=== PATIENT | female | born 2000 | race Caucasian/White ===

== ENCOUNTER 2021-10-13 21:34 | Emergency (ER) | payer MEDICAID, SELFPAY ==
[2021-10-13 21:54] LABS: Basophils Percent Auto 0.4 % (0.2-1.2); Eosinophils Absolute Auto 0.1 K/mm3 (0-0.3); Eosinophils Percent Auto 1.3 % (0-4.4); Hemoglobin 12.7 g/dL (12.0-15.0); Immature Granulocyte Absolute 0.01 K/mm3 (0.00-0.031); Immature Granulocyte Percent A 0.1 % (0-0.5); Lymphocytes Absolute Auto 2.13 K/mm3 (0.9-3.2); Mean Corpuscular HGB Conc 32.6 g/dl (32-36); Mean Corpuscular Hemoglobin 30.7 pg (26-34); Mean Corpuscular Volume 94.2 fl (80-100); Mean Platelet Volume 10.3 fl (7.4-10.4); Monocytes Absolute Auto 0.4 K/mm3 (0.1-0.6); Monocytes Percent Auto 5.3 % (2.6-8.5); Neutrophils Absolute Auto 5.2 K/mm3 (1.3-6.7); Neutrophils Percent Auto 65.9 % (45.5-73.1); Platelet Count Result 233 k/mm3 (150-375); Red Blood Count 4.14 M/mm3 (4.2-5.4); Red Cell Distribution Width 12.9 % (11.5-14.5); White Blood Count 7.9 K/mm3 (4.5-10.0)
[2021-10-13 21:56] LABS: Appearance Urine Clear (Clear); Bilirubin Urine Negative (Negative); Blood Urine 1+ (Negative); Color Urine Yellow (Yellow); Glucose Urine UA Negative (Negative); Ketones Urine Negative (Negative); Leukocyte Esterase Ur 1+ LEU/UL (Negative); Nitrate Urine Negative (Negative); Protein Urine 1+ mg/dL (Negative); Urobilinogen Urine 0.2 mg/dL (<2.0)
[2021-10-13 22:00] LABS: Amorphous Sediment Urine Few; Bacteria Urine Trace /hpf; Mucus Urine Rare /lpf; Squamous Epithelial Cell Urine Rare /hpf (Few); WBC Urine 31-50 /hpf
[2021-10-13 22:02] LABS: Add Urine Microscopic? YES
[2021-10-13 22:03] LABS: Alanine Aminotransferase 13 U/L (6-35); Albumin Level 4.5 g/dL (3.5-5.1); Alkaline Phosphatase 66 U/L (38-126); Anion Gap 10 mmol/L (8-16); Aspartate Amino Transferase 25 U/L (14-36); Bilirubin,Total 0.4 mg/dL (0.2-1.3); Blood Urea Nitrogen 16 mg/dL (7-17); Carbon Dioxide 24 mmol/L (22-30); Chloride 101 mmol/L (98-107); Estimated CRCL calculation 111 ml/min; Estimated Glomerular Filt Rate > 60; Glucose 93 mg/dL (65-110); Potassium 3.7 mmol/L (3.4-5.0); Sodium 135 mmol/L (137-145)
--- NOTE | 2021-10-13 22:16 | ED.FEMALEGU ---
HPI - Female Genitourinary General Chief complaint: Urogenital-Female Stated complaint: UTI/Kidney Pain, 7 Weeks Time Seen by Provider: 10/13/21 22:10 History of Present Illness HPI Narrative: 21-year-old female presents emergency room with symptoms consistent with urinary tract infection. Is been going for couple days. She got urinary frequency and urgency. She has some mild suprapubic pain associated with this. Also complains some nonspecific pain to her back. Denies any chills or fevers. She states she used to have frequent urinary tract infections when she was a kid but not had one in many years. Denies any blood in her urine. She is currently approximately 7 weeks gestation at this time to get an appointment with the CREW CLERK for the first time coming up in approximately 12 days. Related Data Allergies Allergy/AdvReac Type Severity Reaction Status Date / Time coconut Allergy Unknown HIVES Verified 10/13/21 21:37 Wasp Allergy Unknown SWELLING Uncoded 10/13/21 21:37 AND NUMBNESS AT SITE Review of Systems Review of Systems: CONSTITUTIONAL: Denies fever, chills, or sweats. EYES: Denies visual changes, redness, or discharge. ENT: Denies rhinorrhea, congestion, sore throat, or otalgia. CARDIOVASCULAR: Denies chest pain, palpitations, or edema. RESPIRATORY: Denies cough or dyspnea. GASTROINTESTINAL: Denies abdominal pain, nausea, vomiting, or diarrhea. GENITOURINARY: Urinary frequency, urgency, and dysuria. SKIN: Denies rash or itching. MUSCULOSKELETAL: Denies back pain, joint pain, or myalgia. NEUROLOGIC: Denies headache, numbness, or weakness. PSYCHIATRIC: Denies anxiety or depression. [facility] Past Medical History Medical History Asthma Social History Social History Smoking status: Never smoker Living arrangements: with family Exam Narrative: APPEARANCE: Well appearing, no pain or distress, well-nourished. Head Normocephalic and atraumatic. EYES: PERRLA/EOMI, conjunctivae clear. NOSE: Normal with no drainage EARS:TMS clear with [place], with good light reflex. THROAT: Pharynx clear, no exudate. NECK: Supple. No adenopathy, no masses. RESPIRATORY: Airway patent, respirations nonlabored. Clear to auscultation bilaterally, no rales, rhonchi, wheezing. CARDIOVASCULAR: Regular rate and rhythm without murmurs, rubs, or gallops. ABDOMINAL: Soft, nondistended, no hepatosplenomegaly. Mild suprapubic tenderness is noted. No CVA tenderness. Musculoskeletal: Moves all extremities. Strength/ROM intact, No edema, No calf tenderness. NEURO: Alert. Cranial nerves II through XII intact. Normal gait. Good coordination. Nonfocal examination. SKIN:: Warm, dry. Normal Color PSYCHIATRIC: Normal affect/mood, normal interaction MDM - Female Genitourinary MDM Narrative Medical decision making narrative: Urinalysis consistent with urinary tract infection. CBC shows a normal white count of 7.9. Patient will be treated with a course of antibiotics for 7 days. Advised her she can take Tylenol safely during her and to increase fluids. She also has a follow-up appoint with her CREW CLERK coming up at approximately 12 days. Lab Data Result diagrams: 10/13/21 21:46 10/13/21 21:46 Labs: Lab Results 10/13/21 10/13/21 10/13/21 Range/Units 21:46 21:46 21:49 WBC 7.9 (4.5-10.0) K/mm3 RBC 4.14 L (4.2-5.4) M/mm3 Hgb 12.7 (12.0-15.0) g/dL Hct 39.0 (37.0-47.0) % MCV 94.2 (80-100) fl MCH 30.7 (26-34) pg MCHC 32.6 (32-36) g/dl RDW 12.9 (11.5-14.5) % Plt Count 233 (150-375) k/mm3 MPV 10.3 (7.4-10.4) fl Immature Gran % (Auto) 0.1 (0-0.5) % Neut % (Auto) 65.9 (45.5-73.1) % Lymph % (Auto) 27.0 (18.3-44.2) % [place] % (Auto) 5.3 (2.6-8.5) % Eos % (Auto) 1.3 (0-4.4) % Baso % (Auto) 0.4 (0.2-1.2) % Lymph # (
== END 2021-10-13 22:29 | disposition home or self-care (01) ==
LOC: ANHED 22:20
PROVIDERS: Emergency Provider Emergency Medicine
DX: O23.91 Unspecified genitourinary tract infection in pregnancy, first trimester (principal); O99.511 Diseases of the respiratory system complicating pregnancy, first trimester; J45.909 Unspecified asthma, uncomplicated; Z3A.01 Less than 8 weeks gestation of pregnancy
CPT/HCPCS: 36415; 80053; 81001; 85025; 87077; 87086; 87088; 99283

== ENCOUNTER 2021-12-17 02:05 | Emergency (ER) | payer MEDICAID, SELFPAY ==
[2021-12-17 02:09] VITALS: BP 148/88; PULSE 83; RESP 18; TEMP 36.3; O2SAT 100
--- NOTE | 2021-12-17 03:35 | ED.DENTAL ---
HPI - Dental/Oral General Chief complaint: Dental/Oral Stated complaint: Left lower dental pain Time Seen by Provider: 12/17/21 03:04 History of Present Illness HPI Narrative: Patient is a 21-year-old female presenting with dental pain. Patient states that one of her left lower molars had a filling that fell out and then the tooth subsequently cracked. Since that time, the pain is worsened and she now has slight swelling of her left cheek. States that the whole area feels very sensitive. Patient has an appointment with a dentist in 2 weeks but the pain has become unbearable. States that she has called numerous dentists offices to try to get in soon as possible but they do not take her insurance. Patient states that she has been alternating Tylenol and ibuprofen for pain control. She denies difficulty swallowing or breathing. No fevers, chest pain, nausea or vomiting, abdominal pain. Related Data Allergies Allergy/AdvReac Type Severity Reaction Status Date / Time coconut Allergy Unknown HIVES Verified 12/17/21 02:06 Wasp Allergy Unknown SWELLING Uncoded 12/17/21 02:06 AND NUMBNESS AT SITE Review of Systems Review of Systems: All systems reviewed & are unremarkable except as noted in HPI and below PMFSH Past Medical History Medical History Asthma Social History Social History Smoking status: Never smoker Exam Narrative: GENERAL: Well-appearing, well-nourished, and in no acute distress. HEAD: Normocephalic, atraumatic. Mild swelling left lower cheek, multiple dental caries, tooth 21 cracked and tender with palpation EYES: PERRLA and EOMI. ENT: Nares clear, no rhinorrhea or epistaxis. Mucous membranes moist. NECK: Supple. CHEST: Clear to auscultation. No respiratory distress. HEART: Regular rate and rhythm. No murmur heard. Normal peripheral pulses. ABDOMEN: Soft, nontender, nondistended, normal active bowel sounds. EXTREMITIES: Normal range of motion. No edema. SKIN: Warm, dry, no rash. NEURO: No focal deficits. Alert and oriented x3. PSYCH: Normal mood and affect. Course Course Emergency Course: Patient is a 21-year-old female presenting with dental pain. Vitals within normal limits. Exam remarkable for the above. Concern for possible developing dental infection. Will start penicillin. Advised patient to keep her dental appointment as scheduled. Appropriate return precautions given. Patient voiced understanding and is agreeable with plan. Discharged in stable condition. Vital Signs Vital signs: Vital Signs Temperature 97.4 F L 12/17/21 02:09 Pulse Rate 83 12/17/21 02:09 Respiratory Rate 18 12/17/21 02:09 Blood Pressure 148/88 H 12/17/21 02:09 Pulse Oximetry 100 12/17/21 02:09 Oxygen Delivery Room Air 12/17/21 02:09 Temperature 97.4 F L 12/17/21 02:09 Pulse Rate 83 12/17/21 02:09 Respiratory Rate 18 12/17/21 02:09 Blood Pressure 148/88 H 12/17/21 02:09 Pulse Oximetry 100 12/17/21 02:09 Oxygen Delivery Room Air 12/17/21 02:09 MDM - Dental/Oral Lab Data Labs: UCG Bedside Result Negative Reference Range: Negative Discharge Plan Discharge Clinical Impression: Dental caries, Toothache Patient Disposition: Home, Self-Care Condition: Stable Instructions: Antibiotic Form, Toothache (ED) Additional Instructions: Please follow-up with your primary care provider and dentist as scheduled. Prescriptions: New penicillin V potassium 500 mg tablet 500 mg PO QID 7 Days Qty: 28 0RF hydrocodone-acetaminophen 5-325 mg tablet 1 tablet PO DAILY PRN (Reason: pain) Qty: 3 0RF No Action nitrofurantoin monohyd/m-cryst [Macrobid] 100 mg capsule 100 mg PO Q12H 7 Days Qty: 14 0RF Rx Instructions: must administer with a meal/food Foll
[2021-12-17] MEDS: KETOROLAC 30 MG/ML VIAL (*BKC) IM (04:07)
[2021-12-17] MEDS: PENICILLIN V POTASSIUM 250 MG TABLET 500 MG PO (04:08)
== END 2021-12-17 04:10 | disposition home or self-care (01) ==
PROVIDERS: Emergency Provider Emergency Medicine; PCP Family Medicine
DX: K02.9 Dental caries, unspecified (principal); K08.89 Other specified disorders of teeth and supporting structures
CPT/HCPCS: 81025; 96372; 99283; A9270; J1885

== ENCOUNTER 2022-04-22 11:38 | Outpatient (CLI) | payer OTHER, SELFPAY | END 2022-04-22 11:39 | disposition home or self-care (01) | PROVIDERS: PCP Family Medicine; Visit Provider Obstetrics & Gynecology | DX: Z87.59 Personal history of other complications of pregnancy, childbirth and the puerperium (principal) | CPT/HCPCS: 36415; 84702 ==

== ENCOUNTER 2022-05-11 13:41 | Emergency (ER) | payer OTHER, SELFPAY ==
[2022-05-11 14:07] VITALS: BP 121/64; PULSE 100; RESP 15; TEMP 36.8; O2SAT 98
--- NOTE | 2022-05-11 16:17 | ED.NAVMDI ---
HPI - Nausea/Vomiting/Diarrhea General Chief complaint: Nausea/Vomiting/Diarrhea Stated complaint: N/V at 9 weeks Time Seen by Provider: 05/11/22 15:54 Source: patient and RN notes reviewed Mode of arrival: ambulatory Limitations: no limitations History of Present Illness HPI Narrative: Patient is 22 years old white female 9 weeks presents to the ED with nausea and vomiting unable to keep anything down since last night. Patient is 2 para 0 1. She denies any abdominal pain, vaginal bleeding or discharge. Patient denies any fever, or respiratory symptoms. Feels achy and chilly. Related Data Allergies Allergy/AdvReac Type Severity Reaction Status Date / Time coconut Allergy Unknown HIVES Verified 05/11/22 13:42 Wasp Allergy Unknown SWELLING Uncoded 05/11/22 13:42 AND NUMBNESS AT SITE Review of Systems Review of Systems: All systems reviewed & are unremarkable except as noted in HPI and below PMFSH Past Medical History Medical History Asthma Social History Social History Smoking status: Never smoker Living arrangements: with family Exam Narrative: General appearance: Well-developed, well-nourished Skin: Normal color Head: Normocephalic, nontraumatic Eyes: Clear conjunctiva ENT: Oropharynx normal, ears normal, nose normal Neck: Supple, nontender Chest and respiratory: Airway patent, no respiratory distress, no accessory muscle use Heart: Regular rate/rhythm Abdomen: Soft, nontender, no organomegaly, quiet bowel sounds Vascular: Normal peripheral pulses, normal capillary refill. Musculoskeletal: Normal range of motion, nontender back Neurologic: Alert and oriented ?3, QUALITY IMPROVEMENT ANALYST is normal as tested, no gross motor deficit Course Reevaluation(s) Reevaluation #1: Patient feeling much better after 2 L of normal saline and 8 mg of Zofran. And she is ready to go Date: 05/11/22 Time: 19:07 Consultations Date: 05/11/22 Time: 19:02 Vital Signs Vital signs: Vital Signs Temperature 36.8 C 05/11/22 14:07 Pulse Rate 100 05/11/22 14:07 Respiratory Rate 15 05/11/22 14:07 Blood Pressure 121/64 05/11/22 14:07 Pulse Oximetry 98 05/11/22 14:07 Oxygen Delivery Room Air 05/11/22 14:07 Temperature 36.8 C 05/11/22 14:07 Pulse Rate 100 05/11/22 14:07 Respiratory Rate 15 05/11/22 14:07 Blood Pressure 121/64 05/11/22 14:07 Pulse Oximetry 98 05/11/22 14:07 Oxygen Delivery Room Air 05/11/22 14:07 MDM - Nausea/Vomiting/Diarrhea MDM Narrative Medical decision making narrative: Patient is 22 weeks old white female came with nausea and vomiting, 9 weeks , feeling chilly, patient denies abdominal pain, vaginal bleeding or discharge physical examination was unremarkable, differential diagnosis hyperemesis gravidarum versus gastroenteritis versus urinary tract infection Labs, UA ordered. Work-up did not show any significant finding to explain patient vomiting. Hyperemesis gravidarum is my concern. Patient received 2 L of normal saline, 8 mg of Zofran IV prior to discharge, feeling much better and ready to go home. Differential Diagnosis Differential diagnosis: Likely gastroenteritis, dehydration and other (Hyperemesis gravidarum, urinary tract infection, electrolyte imbalance) Lab Data 05/11/22 16:35 05/11/22 16:35 Labs: Lab Results 05/11/22 05/11/22 Range/Units 16:35 16:35 WBC 5.6 (4.5-10.0) K/mm3 RBC 4.72 (4.2-5.4) M/mm3 Hgb 14.4 (12.0-15.0) g/dL Hct 42.6 (37.0-47.0) % MCV 90.3 (80-100) fl MCH
[2022-05-11] MEDS: SODIUM CHLORIDE 0.9% IV 1,000 ML 999 ML IV CONT ×2 (16:35→16:36)
[2022-05-11] MEDS: ONDANSETRON INJ 4 MG/2 ML VIAL 8 MG IV PUSH (16:36)
[2022-05-11 16:52] LABS: Basophils Percent Auto 0.2 % (0.2-1.2); Eosinophils Absolute Auto 0.1 K/mm3 (0-0.3); Eosinophils Percent Auto 0.9 % (0-4.4); Hematocrit 42.6 % (37.0-47.0); Hemoglobin 14.4 g/dL (12.0-15.0); Immature Granulocyte Absolute 0.02 K/mm3 (0.00-0.031); Immature Granulocyte Percent A 0.4 % (0-0.5); Lymphocytes Absolute Auto 0.93 K/mm3 (0.9-3.2); Lymphocytes Percent Auto 16.7 % (18.3-44.2); Mean Corpuscular HGB Conc 33.8 g/dl (32-36); Mean Corpuscular Hemoglobin 30.5 pg (26-34); Mean Corpuscular Volume 90.3 fl (80-100); Mean Platelet Volume 10.5 fl (7.4-10.4); Monocytes Absolute Auto 0.4 K/mm3 (0.1-0.6); Monocytes Percent Auto 6.8 % (2.6-8.5); Neutrophils Absolute Auto 4.2 K/mm3 (1.3-6.7); Platelet Count Result 229 k/mm3 (150-375); Red Blood Count 4.72 M/mm3 (4.2-5.4); Red Cell Distribution Width 12.5 % (11.5-14.5); White Blood Count 5.6 K/mm3 (4.5-10.0)
[2022-05-11 16:59] LABS: Alanine Aminotransferase 20 U/L (6-35); Albumin Level 4.5 g/dL (3.5-5.1); Alkaline Phosphatase 68 U/L (38-126); Anion Gap 10 mmol/L (8-16); Aspartate Amino Transferase 23 U/L (14-36); Bilirubin,Total 0.5 mg/dL (0.2-1.3); Blood Urea Nitrogen 13 mg/dL (7-17); Calcium 8.9 mg/dL (8.4-10.2); Carbon Dioxide 22 mmol/L (22-30); Chloride 104 mmol/L (98-107); Estimated CRCL calculation 157 ml/min; Estimated Glomerular Filt Rate > 60; Glucose 89 mg/dL (65-110); Lipase 52 U/L (23-300); Potassium 3.5 mmol/L (3.4-5.0); Sodium 136 mmol/L (137-145)
[2022-05-11 18:57] LABS: Appearance Urine Clear (Clear); Bacteria Urine None Seen /hpf; Bilirubin Urine Negative (Negative); Blood Urine Negative (Negative); Color Urine Yellow (Yellow); Glucose Urine UA Negative (Negative); Ketones Urine 2+ mg/dL (Negative); Leukocyte Esterase Ur Negative LEU/UL (Negative); Nitrate Urine Negative (Negative); Non Pathogenic Casts 0-2; Protein Urine Trace mg/dL (Negative); RBC Urine 0-2 /hpf (0-2); Specific Grav Ur 1.022 (1.001-1.035); Squamous Epithelial Cell Urine Occasional /hpf (Few); WBC Urine 0-5 /hpf
[2022-05-11 19:03] LABS: Add Urine Microscopic? YES
[2022-05-11 19:35] VITALS: PULSE 77; RESP 20; O2SAT 98
== END 2022-05-11 19:40 | disposition home or self-care (01) ==
PROVIDERS: Emergency Provider Emergency Medicine; PCP Obstetrics & Gynecology
DX: O21.0 Mild hyperemesis gravidarum (principal); O99.511 Diseases of the respiratory system complicating pregnancy, first trimester; J45.909 Unspecified asthma, uncomplicated; Z3A.09 9 weeks gestation of pregnancy
CPT/HCPCS: 36415; 80053; 81001; 83690; 85025; 96360; 96361; 96374; 99284; J2405; J7030

== ENCOUNTER 2022-08-02 00:14 | Observation (INO) | payer OTHER, SELFPAY ==
--- NOTE | 2022-08-02 00:30 | PC.NURSE ---
[place] at 1999. Noted vaginal bleeding with wiping at approx 2200. Spotting after vagianl bleeding. Not using pad. NO pain.
--- NOTE | 2022-08-02 00:30 | OBADM ---
This patient, Ana Barone, admitted to the OB room OB Post 115 for observation. Patient/family oriented to hospital policies and general routines including ID bracelet, bed and alarms, visiting hours, pain management, procedures, bathroom and other care routines, personal items, smoking policy, room service/diet, and visiting hours. Patient/Family are encouraged to report perceived risks to care and to ask questions if they do not understand what they are told or what they should do.
[2022-08-02 00:32] VITALS: BP 127/72; PULSE 92
--- NOTE | 2022-08-02 01:00 | PC.NURSE ---
Dr. Viera on unit advised of pt assessment. Pt to be discharged to home and follow up in office today for anatomy scan and appt.
--- NOTE | 2022-08-04 08:22 | PM.OBTRLD ---
OB - Triage/Final Diagnosis Visit Information Comments/Additional reasons for admission: I have assessed the risk for this patient, Ana Barone, and determined that she would benefit from observation care. Final Diagnosis (1) Vaginal bleeding during : Code(s): O46.90 - Antepartum hemorrhage, unspecified, unspecified trimester Status: Acute
== END 2022-08-02 01:45 | disposition home or self-care (01) ==
PROVIDERS: Admitting Provider Obstetrics & Gynecology; Visit Provider Obstetrics & Gynecology
DX: O46.92 Antepartum hemorrhage, unspecified, second trimester (principal); Z3A.21 21 weeks gestation of pregnancy
CPT/HCPCS: G0378; G0379

== ENCOUNTER 2022-08-25 06:33 | Observation (INO) | payer OTHER, SELFPAY ==
[2022-08-25 06:55] VITALS: TEMP 36.2
[2022-08-25 06:56] VITALS: BP 139/78; PULSE 103
[2022-08-25 07:31] VITALS: BP 113/46; PULSE 102
[2022-08-25 07:39] LABS: Appearance Urine Clear (Clear); Bacteria Urine None Seen /hpf; Bilirubin Urine Negative (Negative); Blood Urine Negative (Negative); Color Urine Yellow (Yellow); Glucose Urine UA Negative (Negative); Ketones Urine Negative (Negative); Leukocyte Esterase Ur 1+ LEU/UL (NEGATIVE); Need Manual Microscopic Reviewed; Nitrate Urine Negative (Negative); Non Pathogenic Casts 0-2; Protein Urine Negative (Negative); RBC Urine 0-2 /hpf (0-2); Specific Grav Ur 1.007 (1.001-1.035); Squamous Epithelial Cell Urine Occasional /hpf (Few); Urobilinogen Urine 0.2 mg/dL (<2.0); WBC Urine 0-5 /hpf (0-3); pH Urine 7.5 (5.0-9.0)
[2022-08-25 07:40] LABS: Add Urine Microscopic? YES
--- NOTE | 2022-08-25 07:40 | PC.NURSE ---
Sherrill Gaspar CNM at department reviewed strip and UA result. order received for flexeril, may discharge to home when she feels better
[2022-08-25] MEDS: CYCLOBENZAPRINE HCL 10 MG TABLET PO (08:07)
--- NOTE | 2022-08-28 17:04 | P.PNOB_ITS ---
OB - Triage/Final Diagnosis Visit Information Date of evaluation: 08/25/22 Reason for evaluation: other (back pain) Comments/Additional reasons for admission: I have assessed the risk for this patient, Ana Barone, and determined that she would benefit from observation care. Evaluation Laboratory results: Laboratory Tests 08/25/22 06:49 Urine Color Yellow Urine Appearance Clear Urine pH 7.5 Ur Specific [place] 1.007 Urine Protein Negative Urine Glucose (UA) Negative Urine Ketones Negative Ur Blood (Man) Negative Urine Nitrate Negative Urine Bilirubin Negative Urine Urobilinogen 0.2 Ur Leukocyte Esterase 1+ H Add Ur Microanalysis Reviewed Urine RBC 0-2 Urine WBC 0-5 Ur Squamous Epith Cells Occasional Urine Bacteria None seen Urine Casts 0-2
== END 2022-08-25 08:20 | disposition hospice, home (50) ==
PROVIDERS: Admitting Provider Obstetrics & Gynecology; Visit Provider Obstetrics & Gynecology
DX: O99.891 Other specified diseases and conditions complicating pregnancy (principal); M54.9 Dorsalgia, unspecified; Z3A.24 24 weeks gestation of pregnancy
CPT/HCPCS: 81001; 87086; 87088; A9270; G0378; G0379

== ENCOUNTER 2022-10-05 11:07 | Observation (INO) | payer OTHER, SELFPAY ==
[2022-10-05] VITALS (17 sets, daily range): BP systolic 121–151; BP diastolic 67–89; PULSE 88–123; RESP 18–20; TEMP 36.1–36.8; O2SAT 99–100; BMI 36.6
--- NOTE | 2022-10-05 11:28 | PC.NURSE ---
Call made to ESE Franco RN to come and monitor pt in ED.
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
[2022-10-05] MEDS: ACETAMINOPHEN 500 MG TABLET 1000 MG PO (12:51)
[2022-10-05 13:18] LABS: Basophils Absolute Auto 0.1 K/mm3 (0.0-0.1); Basophils Percent Auto 0.5 % (0.2-1.2); Eosinophils Absolute Auto 0.1 K/mm3 (0-0.3); Eosinophils Percent Auto 0.8 % (0-4.4); Hematocrit 35.5 % (37.0-47.0); Hemoglobin 11.9 g/dL (12.0-15.0); Immature Granulocyte Percent A 0.9 % (0-0.5); Lymphocytes Absolute Auto 1.41 K/mm3 (0.9-3.2); Lymphocytes Percent Auto 12.9 % (18.3-44.2); Mean Corpuscular HGB Conc 33.5 g/dl (32-36); Mean Corpuscular Volume 92.4 fl (80-100); Mean Platelet Volume 10.4 fl (7.4-10.4); Monocytes Absolute Auto 0.5 K/mm3 (0.1-0.6); Monocytes Percent Auto 4.6 % (2.6-8.5); Neutrophils Absolute Auto 8.8 K/mm3 (1.3-6.7); Neutrophils Percent Auto 80.3 % (45.5-73.1); Platelet Count Result 263 k/mm3 (150-375); Red Blood Count 3.84 M/mm3 (4.2-5.4)
[2022-10-05 13:24] LABS: Appearance Urine Clear (Clear); Bacteria Urine 2+ /hpf; Bilirubin Urine Negative (Negative); Blood Urine Negative (Negative); Color Urine Yellow (Yellow); Glucose Urine UA Negative (Negative); Ketones Urine Negative (Negative); Leukocyte Esterase Ur 1+ LEU/UL (Negative); Nitrate Urine Negative (Negative); Non Pathogenic Casts 0-2; Protein Urine Negative (Negative); RBC Urine 0-2 /hpf (0-2); Specific Grav Ur 1.011 (1.001-1.035); Squamous Epithelial Cell Urine Occasional /hpf (Few); Urobilinogen Urine 0.2 mg/dL (<2.0)
[2022-10-05 13:29] LABS: Alanine Aminotransferase 49 U/L (6-35); Albumin Level 3.8 g/dL (3.5-5.1); Alkaline Phosphatase 114 U/L (38-126); Anion Gap 5 mmol/L (8-16); Aspartate Amino Transferase 24 U/L (14-36); Bilirubin,Total 0.3 mg/dL (0.2-1.3); Blood Urea Nitrogen 6 mg/dL (7-17); Calcium 8.9 mg/dL (8.4-10.2); Carbon Dioxide 20 mmol/L (22-30); Chloride 107 mmol/L (98-107); Estimated CRCL calculation 203 ml/min; Estimated Glomerular Filt Rate > 60; Glucose 84 mg/dL (65-110); Sodium 132 mmol/L (137-145); Uric Acid 3.2 mg/dL (2.5-7.5)
[2022-10-05 13:30] LABS: INR 0.9; Partial Thromboplastin Time 25.5 SECONDS (22.3-36.8); Prothrombin Time 12.1 Seconds (11.1-14.7)
[2022-10-05 13:51] LABS: Creatinine Urine 54.8 mg/dL
[2022-10-05 13:52] LABS: Total Protein Urine Random < 5 mg/dL; Ur Ttl Prot Creatinine Ratio < 0.09 mg/mg (0-0.20)
[2022-10-05] MEDS: CYCLOBENZAPRINE HCL 10 MG TABLET PO (13:55)
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
[2022-10-05 14:17] LABS: Add Urine Microscopic? YES
--- NOTE | 2022-10-05 16:27 | OBADM ---
This patient, Ana Barone, admitted to the OB room OB Post 116 for observation. Patient/family oriented to hospital policies and general routines including ID bracelet, bed and alarms, visiting hours, pain management, procedures, bathroom and other care routines, personal items, smoking policy, room service/diet, and visiting hours. Patient/Family are encouraged to report perceived risks to care and to ask questions if they do not understand what they are told or what they should do.
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
== END 2022-10-05 17:52 | disposition home or self-care (01) ==
LOC: ANHED 12:59 → ANHOBPP 13:30
PROVIDERS: Advanced Practice Midwife; Admitting Provider Obstetrics & Gynecology; Emergency Provider General Practice; Visit Provider Obstetrics & Gynecology
DX: Z04.1 Encounter for examination and observation following transport accident (principal)
CPT/HCPCS: 36415; 59025; 80053; 81001; 82570; 84156; 84550; 85025; 85610; 85730; 87086; 99285; A9270; G0378; G0379

== ENCOUNTER 2022-10-19 08:35 | Outpatient (CLI) | payer OTHER, SELFPAY ==
[2022-10-19 09:31] VITALS: BP 119/74; PULSE 95
[2022-10-19 09:44] LABS: Basophils Percent Auto 0.3 % (0.2-1.2); Eosinophils Absolute Auto 0.1 K/mm3 (0-0.3); Eosinophils Percent Auto 1.2 % (0-4.4); Hematocrit 32.2 % (37.0-47.0); Hemoglobin 10.9 g/dL (12.0-15.0); Immature Granulocyte Absolute 0.03 K/mm3 (0.00-0.031); Immature Granulocyte Percent A 0.5 % (0-0.5); Lymphocytes Absolute Auto 1.41 K/mm3 (0.9-3.2); Lymphocytes Percent Auto 21.9 % (18.3-44.2); Mean Corpuscular HGB Conc 33.9 g/dl (32-36); Mean Corpuscular Hemoglobin 30.7 pg (26-34); Mean Corpuscular Volume 90.7 fl (80-100); Mean Platelet Volume 10.1 fl (7.4-10.4); Monocytes Absolute Auto 0.3 K/mm3 (0.1-0.6); Monocytes Percent Auto 4.3 % (2.6-8.5); Neutrophils Absolute Auto 4.6 K/mm3 (1.3-6.7); Neutrophils Percent Auto 71.8 % (45.5-73.1); Platelet Count Result 225 k/mm3 (150-375); Red Blood Count 3.55 M/mm3 (4.2-5.4); Red Cell Distribution Width 12.5 % (11.5-14.5); White Blood Count 6.4 K/mm3 (4.5-10.0)
[2022-10-19 09:46] VITALS: BP 117/74; PULSE 96
[2022-10-19 09:48] LABS: Appearance Urine Clear (Clear); Bacteria Urine None Seen /hpf; Bilirubin Urine Negative (Negative); Blood Urine Negative (Negative); Color Urine Yellow (Yellow); Glucose Urine UA Negative (Negative); Ketones Urine Negative (Negative); Leukocyte Esterase Ur Trace LEU/UL (NEGATIVE); Nitrate Urine Negative (Negative); Non Pathogenic Casts 0-2; Protein Urine Negative (Negative); RBC Urine 0-2 /hpf (0-2); Specific Grav Ur 1.012 (1.001-1.035); Squamous Epithelial Cell Urine Occasional /hpf (Few); WBC Urine 0-5 /hpf (0-3); pH Urine 6.5 (5.0-9.0)
[2022-10-19 09:50] LABS: Creatinine Urine 72.7 mg/dL; Total Protein Urine Random 8 mg/dL; Ur Ttl Prot Creatinine Ratio 0.11 mg/mg (0-0.20)
[2022-10-19 09:51] LABS: Amylase 66 U/L (30-110); Lipase 63 U/L (23-300)
[2022-10-19 09:53] LABS: Alanine Aminotransferase 160 U/L (6-35); Albumin Level 3.4 g/dL (3.5-5.1); Alkaline Phosphatase 124 U/L (38-126); Anion Gap 5 mmol/L (8-16); Aspartate Amino Transferase 86 U/L (14-36); Bilirubin,Total 0.3 mg/dL (0.2-1.3); Blood Urea Nitrogen 6 mg/dL (7-17); Calcium 8.3 mg/dL (8.4-10.2); Carbon Dioxide 18 mmol/L (22-30); Chloride 107 mmol/L (98-107); Estimated Glomerular Filt Rate > 60; Glucose 88 mg/dL (65-110); Potassium 3.4 mmol/L (3.4-5.0); Sodium 130 mmol/L (137-145); Uric Acid 3.7 mg/dL (2.5-7.5)
[2022-10-19 09:56] LABS: Add Urine Microscopic? YES
[2022-10-19 10:01] VITALS: BP 124/73; PULSE 83
[2022-10-19 10:16] VITALS: BP 129/86; PULSE 101
--- NOTE | 2022-10-19 10:30 | PC.NURSE ---
Ruthie Gaspar notified of lab results. Will discuss with Dr Laguna.
[2022-10-19 10:31] VITALS: BP 127/83; PULSE 102
--- NOTE | 2022-10-19 10:40 | PC.NURSE ---
Ruthie Gaspar called back after discussing with Dr Laguna, Repeat labs and NST on Sat, send with 24 hour urine.
[2022-10-19 10:45] VITALS: BP 119/74; PULSE 104
[2022-10-20 14:17] LABS: Rapid Plasma Reagin Non-Reactive (NonReactive)
[2022-10-23 14:15] LABS: Toxoplasma IgM Antibody <8.0
[2022-10-23 14:21] LABS: Toxoplasma IgG Antibody <7.20
== END 2022-10-19 10:46 | disposition home or self-care (01) ==
LOC: ANHOBOP 08:39 → ANHOBPP 08:40
PROVIDERS: Visit Provider Advanced Practice Midwife
DX: R74.01 Elevation of levels of liver transaminase levels (principal)
CPT/HCPCS: 36415; 59025; 80053; 81001; 82150; 82570; 83690; 84156; 84550; 85025; 86592; 86695; 86696; 86762; 86777; 87086; 87088; 99199

== ENCOUNTER 2022-10-20 09:32 | Outpatient (NON) | payer OTHER, SELFPAY ==
[2022-10-20 09:51] VITALS: BMI 36.0
[2022-10-20 10:52] LABS: Collection Time Urine 24 HOURS
[2022-10-20 11:00] LABS: Total Protein Urine Random 6 mg/dL
[2022-10-20 11:01] LABS: Creatinine Urine 76.9 mg/dL; Patient Weight 251 Lbs
[2022-10-20 11:11] LABS: Total Protein Urine 24 Hr 132 mg/24hr (28-141); Total Volume 24 Hour Urine 2200 ml
[2022-10-20 11:12] LABS: Creatinine Clearance Urine 177.4 ml/min (75-125); Total Volume 24 Hour Urine 2200 ml
== END 2022-10-20 09:33 | disposition home or self-care (01) ==
LOC: ANHOBOP 09:40
PROVIDERS: Visit Provider Advanced Practice Midwife
DX: Z34.90 Encounter for supervision of normal pregnancy, unspecified, unspecified trimester (principal); Z3A.00 Weeks of gestation of pregnancy not specified
CPT/HCPCS: 81050; 82575; 84156

== ENCOUNTER 2022-10-25 08:57 | Outpatient (CLI) | payer OTHER, SELFPAY ==
[2022-10-25 09:57] LABS: Alanine Aminotransferase 65 U/L (6-35); Albumin Level 3.5 g/dL (3.5-5.1); Alkaline Phosphatase 115 U/L (38-126); Anion Gap 5 mmol/L (8-16); Aspartate Amino Transferase 24 U/L (14-36); Bilirubin,Total 0.3 mg/dL (0.2-1.3); Blood Urea Nitrogen 6 mg/dL (7-17); Calcium 8.7 mg/dL (8.4-10.2); Carbon Dioxide 18 mmol/L (22-30); Chloride 106 mmol/L (98-107); Estimated Glomerular Filt Rate > 60; Glucose 88 mg/dL (65-110); Potassium 4.1 mmol/L (3.4-5.0); Sodium 129 mmol/L (137-145); Uric Acid 4.1 mg/dL (2.5-7.5)
== END 2022-10-25 08:58 | disposition home or self-care (01) ==
LOC: ANHLAB 08:59
PROVIDERS: Visit Provider Advanced Practice Midwife
DX: R74.8 Abnormal levels of other serum enzymes (principal)
CPT/HCPCS: 36415; 80053; 84550; 86695; 86696

== ENCOUNTER 2022-10-28 08:00 | Outpatient (RCR) | payer OTHER, SELFPAY ==
[2022-10-21 07:38] VITALS: BP 126/84; PULSE 104
[2022-10-21 08:07] LABS: Hematocrit 33.4 % (37.0-47.0); Hemoglobin 11.1 g/dL (12.0-15.0); Mean Corpuscular HGB Conc 33.2 g/dl (32-36); Mean Corpuscular Hemoglobin 30.2 pg (26-34); Mean Corpuscular Volume 90.8 fl (80-100); Mean Platelet Volume 10.3 fl (7.4-10.4); Platelet Count Result 277 k/mm3 (150-375); Red Blood Count 3.68 M/mm3 (4.2-5.4); Red Cell Distribution Width 12.5 % (11.5-14.5); White Blood Count 8.8 K/mm3 (4.5-10.0)
[2022-10-21 08:16] LABS: Alanine Aminotransferase 147 U/L (6-35); Albumin Level 3.5 g/dL (3.5-5.1); Alkaline Phosphatase 126 U/L (38-126); Anion Gap 10 mmol/L (8-16); Aspartate Amino Transferase 67 U/L (14-36); Bilirubin,Total 0.3 mg/dL (0.2-1.3); Blood Urea Nitrogen 6 mg/dL (7-17); Calcium 8.5 mg/dL (8.4-10.2); Carbon Dioxide 19 mmol/L (22-30); Chloride 105 mmol/L (98-107); Estimated Glomerular Filt Rate > 60; Glucose 109 mg/dL (65-110); Potassium 3.5 mmol/L (3.4-5.0); Sodium 134 mmol/L (137-145)
[2022-10-28 08:32] VITALS: BP 128/77; PULSE 101
[2022-10-28 08:48] LABS: Basophils Percent Auto 0.3 % (0.2-1.2); Eosinophils Absolute Auto 0.1 K/mm3 (0-0.3); Eosinophils Percent Auto 1.5 % (0-4.4); Hematocrit 34.2 % (37.0-47.0); Hemoglobin 11.5 g/dL (12.0-15.0); Immature Granulocyte Absolute 0.04 K/mm3 (0.00-0.031); Immature Granulocyte Percent A 0.5 % (0-0.5); Lymphocytes Absolute Auto 1.43 K/mm3 (0.9-3.2); Lymphocytes Percent Auto 16.5 % (18.3-44.2); Mean Corpuscular HGB Conc 33.6 g/dl (32-36); Mean Corpuscular Hemoglobin 30.9 pg (26-34); Mean Corpuscular Volume 91.9 fl (80-100); Mean Platelet Volume 10.5 fl (7.4-10.4); Monocytes Absolute Auto 0.4 K/mm3 (0.1-0.6); Monocytes Percent Auto 4.8 % (2.6-8.5); Neutrophils Absolute Auto 6.6 K/mm3 (1.3-6.7); Neutrophils Percent Auto 76.4 % (45.5-73.1); Platelet Count Result 253 k/mm3 (150-375); Red Blood Count 3.72 M/mm3 (4.2-5.4); Red Cell Distribution Width 13.2 % (11.5-14.5); White Blood Count 8.7 K/mm3 (4.5-10.0)
[2022-10-28 08:56] LABS: Alanine Aminotransferase 41 U/L (6-35); Albumin Level 3.5 g/dL (3.5-5.1); Alkaline Phosphatase 119 U/L (38-126); Anion Gap 6 mmol/L (8-16); Aspartate Amino Transferase 26 U/L (14-36); Bilirubin,Total 0.3 mg/dL (0.2-1.3); Blood Urea Nitrogen 5 mg/dL (7-17); Calcium 8.5 mg/dL (8.4-10.2); Carbon Dioxide 19 mmol/L (22-30); Chloride 106 mmol/L (98-107); Estimated Glomerular Filt Rate > 60; Glucose 92 mg/dL (65-110); Potassium 3.9 mmol/L (3.4-5.0); Sodium 131 mmol/L (137-145); Uric Acid 3.7 mg/dL (2.5-7.5)
== END 2022-12-13 11:57 | disposition home or self-care (01) ==
LOC: ANHOBOP 08:00
PROVIDERS: Visit Provider Advanced Practice Midwife
DX: O26.893 Other specified pregnancy related conditions, third trimester (principal); R03.0 Elevated blood-pressure reading, without diagnosis of hypertension; Z3A.32 32 weeks gestation of pregnancy; Z3A.33 33 weeks gestation of pregnancy
CPT/HCPCS: 29515; 36415; 59025; 73610; 73630; 80053; 84550; 85025; 85027; 99284; A9270

== ENCOUNTER 2022-10-28 22:34 | Emergency (ER) | payer OTHER, SELFPAY ==
--- NOTE | ~2022-10-28 | XR_ITS ---
XR foot LT min 3V DATE: 10/28/2022 23:03 INDICATION: Left foot pain and swelling following fall TECHNIQUE: 4 views COMPARISON: None FINDINGS: Nondisplaced linear intra-articular fracture of the base of the fifth metatarsal bone. No other fracture or dislocation, periosteal reaction or bone destruction is detected. IMPRESSION: Linear intra-articular minimally displaced fracture of the base of the fifth metatarsal b one Reviewed, dictated and finalized at location A. IMPRESSION: Linear intra-articular minimally displaced fracture of the base of the fifth metatarsal bone
--- NOTE | ~2022-10-28 | XR_ITS ---
XR ankle LT min 3V DATE: 10/28/2022 23:03 INDICATION: Left foot pain and swelling following fall TECHNIQUE: 4 views COMPARISON: None FINDINGS: Minimally displaced linear intra-articular fracture of the lateral base of the fifth metata rsal bone. No fracture or dislocation of the ankle or disruption of the ankle mortise is detected. IMPRESSION: Intra-articular linear minimally displaced fracture of the base of the fifth metatarsal b one Reviewed, dictated and finalized at location A. IMPRESSION: Intra-articular linear minimally displaced fracture of the base of the fifth metatarsal bone
[2022-10-28 22:35] VITALS: BP 150/102; PULSE 113; RESP 20; O2SAT 100
--- NOTE | 2022-10-28 23:20 | ED.GENADULT ---
[facility] - General Adult General Chief complaint: Extremity Injury, Lower Stated complaint: Left Ankle/Foot Pain Time Seen by Provider: 10/28/22 22:43 Source: patient Mode of arrival: ambulatory Limitations: no limitations History of Present Illness HPI narrative: This is a 22-year-old female who presents to the ED with chief complaint of a left foot/ankle injury that occurred just prior to arrival. Patient states that she was walking down the stairs and rolled her ankle on the last stair causing her to fall down. She reports subsequent pain in the left foot, ankle and troubles with weightbearing. Patient reports there is some bruising starting on the foot. She states most of her pain is in the lateral left foot. Reports pain is worse with movement. Denies numbness or weakness. Denies any further site of pain or injury. Related Data Home Medications Medication Instructions Recorded Confirmed albuterol sulfate 90 mcg/actuation inhalation 08/25/22 aerosol inhaler vit no.95-ferrous 1 tablet PO DAILY 08/25/22 fumarate 28 mg-folic acid 800 mcg tablet () Allergies Allergy/AdvReac Type Severity Reaction Status Date / Time coconut Allergy Unknown HIVES Verified 05/11/22 13:42 Wasp Allergy Unknown SWELLING Uncoded 05/11/22 13:42 AND NUMBNESS AT SITE Review of Systems Review of Systems: All systems as dictated in [facility] Past Medical History Medical History Asthma Social History Social History Smoking status: Never smoker Living arrangements: with family Exam Narrative: GENERAL: Well-appearing, well-nourished, and in no acute distress. HEAD: Normocephalic, atraumatic. EYES: PERRLA and EOMI. ENT: Nares clear, no rhinorrhea or epistaxis. Mucous membranes moist. Oropharynx without tonsillar hypertrophy exudate or other lesions. NECK: Supple. No adenopathy or masses. CHEST: No respiratory distress. Clear to auscultation. No wheezes rales or rhonchi HEART: Regular rate and rhythm. No murmur heard. Normal peripheral pulses. ABDOMEN: Soft, nontender, nondistended, normal active bowel sounds. MSK: LLE: Point tenderness to the base of the fifth metatarsal on the left foot. Minimal bruising. No gross deformities. Neurovascular intact distally. RLE: Benign SKIN: Warm, dry, no rash. NEURO: Alert and oriented x3. No focal deficits. PSYCH: Normal mood and affect. Course Vital Signs Vital signs: Vital Signs Pulse Rate 113 H 10/28/22 22:35 Respiratory Rate 20 10/28/22 22:35 Blood Pressure 150/102 H 10/28/22 22:35 Pulse Oximetry 100 10/28/22 22:35 Oxygen Delivery Room Air 10/28/22 22:35 Pulse Rate 113 H 10/28/22 22:35 Respiratory Rate 20 10/28/22 22:35 Blood Pressure 150/102 H 10/28/22 22:35 Pulse Oximetry 100 10/28/22 22:35 Oxygen Delivery Room Air 10/28/22 22:35 Procedures Orthopedic Splinting/Casting Injury #1: Splinting/Casting Date: 10/28/22 Splinting/Casting Time: 23:31 Side: left Lower Extremity Injury Location: foot Lower Extremity Immobilizer: posterior splint OCL: short leg Pre-Procedure Neuro Vascular Exam: normal Post-Procedure Neuro Vascular Exam: normal Other Orthopedic Equipment: crutches Medical Decision Making MDM Narrative Medical decision making narrative: This is a 22-year-old female who presents to the ED with chief complaint of left foot injury occurring just prior to arrival. Patient is about 34 weeks . Vitals show initial tachycardia but otherwise intact. Exam does reveal point tenderness to the base of the fifth metatarsal on the left foot. Otherwise exam is intact. X-rays read preliminarily by myself and attending Dr. Correia who agrees with base of fifth metatarsal fracture without significant displacement. She will
[2022-10-28] MEDS: ACETAMINOPHEN 500 MG TABLET 1000 MG PO (23:51)
== END 2022-10-29 00:24 | disposition home or self-care (01) ==
PROVIDERS: Emergency Provider Physician Assistant
DX: S92.355A Nondisplaced fracture of fifth metatarsal bone, left foot, initial encounter for closed fracture (principal); W10.9XXA Fall (on) (from) unspecified stairs and steps, initial encounter
CPT/HCPCS: 29515; 73610; 73630; 99284; A9270

== ENCOUNTER 2022-11-10 11:51 | Outpatient (CLI) | payer OTHER, SELFPAY | END 2022-11-10 11:52 | disposition home or self-care (01) | PROVIDERS: Visit Provider Advanced Practice Midwife | DX: Z34.92 Encounter for supervision of normal pregnancy, unspecified, second trimester (principal); Z3A.00 Weeks of gestation of pregnancy not specified | CPT/HCPCS: 36415; 86695; 86696 ==

== ENCOUNTER 2022-11-22 00:01 | Inpatient (IN) | payer OTHER, SELFPAY ==
[2022-11-22] VITALS (88 sets, daily range): BP systolic 103–157; BP diastolic 53–128; PULSE 51–124; RESP 16; TEMP 36.1–37.1; O2SAT 82–100; BMI 36.7
--- NOTE | 2022-11-22 00:37 | LDADM ---
This patient, Ana Barone, was admitted to Labor/Delivery/Recovery 103 on 11/22/22 at 00:01. Plans for labor, pain management and were discussed with patient. Patient/family oriented to hospital policies and general routines including ID bracelet, bed and alarms, visiting hours, pain management, procedures, bathroom and other care routines, personal items, smoking policy, room service/diet and guest tray routines, security routines, and visiting hours. Patient/Family are encouraged to report perceived risks to care and to ask questions if they do not understand what they are told or what they should do. See OBIX for further documentation.
[2022-11-22] MEDS: DINOPROSTONE 10 MG VAG INSERT VAGINAL (01:05)
[2022-11-22 01:26] LABS: Basophils Percent Auto 0.3 % (0.2-1.2); Eosinophils Absolute Auto 0.2 K/mm3 (0-0.3); Eosinophils Percent Auto 2.1 % (0-4.4); Hematocrit 34.6 % (37.0-47.0); Hemoglobin 11.4 g/dL (12.0-15.0); Immature Granulocyte Absolute 0.04 K/mm3 (0.00-0.031); Immature Granulocyte Percent A 0.4 % (0-0.5); Immature Platelet Fraction Pct 6.7 % (0.9-11.2); Lymphocytes Absolute Auto 2.03 K/mm3 (0.9-3.2); Lymphocytes Percent Auto 17.8 % (18.3-44.2); Mean Corpuscular HGB Conc 32.9 g/dl (32-36); Mean Corpuscular Hemoglobin 30.4 pg (26-34); Mean Corpuscular Volume 92.3 fl (80-100); Mean Platelet Volume 11.4 fl (7.4-10.4); Monocytes Absolute Auto 0.5 K/mm3 (0.1-0.6); Monocytes Percent Auto 4.6 % (2.6-8.5); Neutrophils Absolute Auto 8.5 K/mm3 (1.3-6.7); Neutrophils Percent Auto 74.8 % (45.5-73.1); Platelet Count Result 287 k/mm3 (150-375); Red Blood Count 3.75 M/mm3 (4.2-5.4); Red Cell Distribution Width 14.1 % (11.5-14.5); White Blood Count 11.4 K/mm3 (4.5-10.0)
[2022-11-22 01:50] LABS: Large Platelets Present; Platelet Estimate Adequate (Adequate)
[2022-11-22 01:51] LABS: Burr Cells 1+ (NORMAL); Ovalocytes 1+ (NORMAL); Schistocytes None Seen (NORMAL)
--- NOTE | 2022-11-22 07:23 | WPDOBADMIT ---
Obstetrics - Admit Note Admission Note: record reviewed. No pertinent additions to the history and/or any subsequent changes in the physical findings that are not consistent with the expected course of the were found. admit for IOL for GHTN, denies headache, visual changes, epigastric pain, cervidil, anticipate vaginal delivery Additions to the history and/or subsequent changes in the physical findings follow. None.
--- NOTE | 2022-11-22 08:17 | WPDANESEPP ---
Anes - Eval Pre Procedure Procedure: Labor Pain Management Date/Time: 11/22/22 08:17 Surgeon: Dr. Laguna Preop Diagnosis: pain during labor Pre Op Diagnosis: IOL Patient Data Age: 22 Gender: F Height: 1.8 m Weight: 119.5 kg Last Vital Signs Temp 97 F L 11/22/22 07:15 Pulse 104 H 11/22/22 08:15 BP 142/91 H 11/22/22 08:15 Pulse Ox 82 L 11/22/22 07:13 O2 Del Method Room Air 11/22/22 00:34 Allergies Allergy/AdvReac Type Severity Reaction Status Date / Time coconut Allergy Unknown Swelling Verified 11/22/22 00:51 Wasp Allergy Unknown SWELLING Uncoded 11/14/22 12:27 AND NUMBNESS AT SITE Home Medications Medication Instructions Recorded Confirmed Type albuterol sulfate 90 mcg/actuation 90 mcg inhalation BID PRN Wheezing 08/25/22 11/14/22 History aerosol inhaler vit no.95-ferrous 1 tablet PO DAILY 08/25/22 11/22/22 History fumarate 28 mg-folic acid 800 mcg tablet () valacyclovir 500 mg tablet 500 mg PO BID 11/14/22 11/22/22 History Laboratory Tests 11/22/22 00:31 WBC 11.4 H K/mm3 (4.5-10.0) RBC 3.75 L M/mm3 (4.2-5.4) Hgb 11.4 L g/dL (12.0-15.0) Hct 34.6 L % (37.0-47.0) MCV 92.3 fl (80-100) MCH 30.4 pg (26-34) MCHC 32.9 g/dl (32-36) RDW 14.1 % (11.5-14.5) Plt Count 287 k/mm3 (150-375) MPV 11.4 H fl (7.4-10.4) Immature Gran % (Auto) 0.4 % (0-0.5) Neut % (Auto) 74.8 H % (45.5-73.1) Lymph % (Auto) 17.8 L % (18.3-44.2) [place] % (Auto) 4.6 % (2.6-8.5) Eos % (Auto) 2.1 % (0-4.4) Baso % (Auto) 0.3 % (0.2-1.2) Lymph # (Auto) 2.03 K/mm3 (0.9-3.2) Divide # (Auto) 0.5 K/mm3 (0.1-0.6) Eos # (Auto) 0.2 K/mm3 (0-0.3) Baso # (Auto) 0.0 K/mm3 (0.0-0.1) Abs Immat Gran (auto) 0.04 H K/mm3 (0.00-0.031) Absolute Neuts (auto) 8.5 H K/mm3 (1.3-6.7) Absolute Nucleated RBC 0.0 K/mm3 (0.0-0.012) Nucleated RBC % 0.0 % (0.0-0.2) Platelet Estimate Adequate (Adequate) Large Platelets Present % Immature Plt Fraction 6.7 % (0.9-11.2) Ovalocytes 1+ (NORMAL) [place] Cells 1+ (NORMAL) Schistocytes None seen (NORMAL) RPR Pending Blood Type A Positive Antibody Screen Negative Patient hx anesthesia problems: none Family hx anesthesia problems: none Results Review: All pre-operative results and documents have been reviewed as part of the pre-operative evaluation. [facility] Past Medical History Medical History Asthma Family History Family History Grandparent No problems noted. Grandparent Diabetes mellitus Congestive heart failure Father Diabetes mellitus Social History Social History Smoking status: Current every day smoker Tobacco type: e-cigarettes/vaping Second hand tobacco smoke exposure: Yes Alcohol intake: never Substance use: never Lack of Transportation: No Lack of Food: Never True Current Housing: I Have Housing Concerned About Future Housing: No Difficulty Paying Gas/Electric Bills: No Difficulty Paying for Meds: No Currently Unemployed: No Education: High School Diploma/GED Difficulty w/ Childcare or Family Care: No Living arrangements: with family Spiritual care concerns: No Exam Day of Procedure 11/22/22 08:17
[2022-11-22] MEDS: miSOPROStol 25 MCG TABLET PO (13:28)
[2022-11-22 15:22] LABS: Rapid Plasma Reagin Non-Reactive (NonReactive)
--- NOTE | 2022-11-22 17:52 | P.PNOB_ITS ---
OB - PN: Subj Subjective Date/time seen: 11/22/22 17:52 SVE 1.5/70/-2 AROM moderate amount of clear, odorless fluid, anticipate vaginal delivery OB - PN: Obj Data Labs 11/22/22 00:31 Labs: Laboratory Results - last 24 hr 11/22/22 00:31 WBC 11.4 H RBC 3.75 L Hgb 11.4 L Hct 34.6 L MCV 92.3 MCH 30.4 MCHC 32.9 RDW 14.1 Plt Count 287 MPV 11.4 H Immature Gran % (Auto) 0.4 Neut % (Auto) 74.8 H Lymph % (Auto) 17.8 L [place] % (Auto) 4.6 Eos % (Auto) 2.1 Baso % (Auto) 0.3 Lymph # (Auto) 2.03 [place] # (Auto) 0.5 Eos # (Auto) 0.2 Baso # (Auto) 0.0 Abs Immat Gran (auto) 0.04 H Absolute Neuts (auto) 8.5 H Absolute Nucleated RBC 0.0 Nucleated RBC % 0.0 Platelet Estimate Adequate Large Platelets Present % Immature Plt Fraction 6.7 Ovalocytes 1+ [place] Cells 1+ Schistocytes None seen RPR Non-reactive Blood Type A Positive Antibody Screen Negative OB - PN A/P Time Spent With Patient Time: Total time spent is greater than 50% in coordination of care (as documented) at patient's floor/unit and/or counseling patient:
[2022-11-22] MEDS: LACTATED RINGERS 1,000 ML 125 ML IV CONT (18:30)
[2022-11-22] MEDS: OXYTOCIN 30 UNITS/NS 500 ML 30 UNITS/500 ML BAG 6 UNITS IV CONT (18:56)
--- NOTE | 2022-11-22 21:36 | WPDANESEPN ---
Anes - Epidural Procedure Note Date/Time: 11/22/22 21:36 Consent: I have discussed with the patient/family/POA, the placement of an epidural catheter and the use of epidural narcotic/local anesthetic for labor analgesia and/or postoperative pain management, including associated potential risks, benefits, complications and side effects. I have discussed alternative methods of labor analgesia and/or postoperative pain management. The patient/family/POA, understand(s) and wish(es) to proceed with epidural narcotic/local anesthetic for labor analgesia and/or postoperative pain management. Time-Out: A pre-procedural Time-Out was completed immediately before starting the procedure and confirmed: Patient Identification, Site, Procedure, Patient Position and the Availability of Requisite Equipment. Clinical Indications: Labor pain Epidural Insertion Note Patient position: sitting Skin prep: chlorhexidine and sterile drape Needle: 18g Tuohy-Schliff Catheter: 20g Unstyleted Technique: Loss of resistance. Level of insertion: L3/4 Catheter skin rick (cm): 12 Length in epidural space (cm): 7 Skin anesthesia: lidocaine 1% Test dose: 1.5% Lidocaine with 1:[id number] Epi, negative for subarachnoid Inj and negative for intravascular Inj Time of test dose: 21:27 Observations: tolerated well Complications: none
[2022-11-23] VITALS (172 sets, daily range): BP systolic 84–160; BP diastolic 42–106; PULSE 75–158; RESP 16–18; TEMP 36.3–38.4; O2SAT 76–100
[2022-11-23] MEDS: LACTATED RINGERS 1,000 ML 125 ML IV CONT ×2 (05:12→09:56)
--- NOTE | 2022-11-23 10:27 | PM.OBPNVD ---
OB - PN: Subj Subjective Date/time seen: 11/23/22 10:27 pt resting comfortably with epidural SVE by RN, pitgrzegorz, anticipate vaginal delivery OB - PN: Obj Data Labs 11/22/22 00:31 Labs: Laboratory Results - last 24 hr 11/22/22 00:31 RPR Non-reactive OB - PN A/P Time Spent With Patient Time: Total time spent is greater than 50% in coordination of care (as documented) at patient's floor/unit and/or counseling patient:
[2022-11-23] MEDS: AMPICILLIN 2 GM/NS 100 ML 2 GM/100 ML BAG IVPB (11:23)
[2022-11-23] MEDS: miSOPROStol 200 MCG TABLET 1000 MCG RECTAL (12:17)
--- NOTE | 2022-11-23 12:26 | PM.OBPRVD ---
OB - Delivery Note Procedure Delivery date: 11/23/22 Procedure: Events: Gestational Hypertension Induction method: AROM, Per Misoprostol Protocol, Per Pitocin Protocol and Per Cervidil Protocol Delivery monitor: External FHT, External Uterine and Internal Uterine Route of delivery: Episiotomy description: None Laceration Description: Perineal - 1st Degree Delivery repair: vicryl Specimen: Yes Quantitative Blood Loss (ml): 475 Anesthesia type: Epidural Disposition: Floor Baby Date of : 11/23/22 Time of : 12:09 Weeks of gestation at delivery: 37 Weight (pounds): 6 Weight (ounces): 2 presentation: vertex position: Left Occiput Anterior Placenta delivery description: Spontaneous Cord Vessel Description: 3 Vessels, Nuchal Cord (x1), Loose, Delayed Cord Clamping and Around Body (x1) score one minute: 8 score five minutes: 9 Narrative: uterus boggy after delivery of placenta, massage, pitocin and cytotec, fundus firm at U, mother and baby skin to skin in stable condition
[2022-11-23] MEDS: OXYTOCIN 30 UNITS/NS 500 ML 30 UNITS/500 ML BAG 125 UNITS IV CONT (12:40)
[2022-11-23] MEDS: ACETAMINOPHEN 500 MG TABLET 1000 MG PO (12:48)
[2022-11-23] MEDS: BENZOCAINE 20% AER SPR (*SP) 56 GM CAN 1 SPRAY TOPICAL (14:47)
[2022-11-23] MEDS: WITCH HAZEL 40 PADS 1 PAD TOPICAL (14:47)
--- NOTE | 2022-11-23 15:25 | OBPPTRN ---
1508-Patient transferred to post room #282 via wheelchair. Support person present. Oriented to unit, room, information board, rooming in, admission packet and security measures. Patient verbalizes understanding.
[2022-11-23] MEDS: IBUPROFEN 600 MG TABLET PO ×2 (16:06→22:05)
[2022-11-23] MEDS: ACETAMINOPHEN 325 MG TABLET 650 MG PO (22:05)
[2022-11-24] VITALS (8 sets, daily range): BP systolic 124–145; BP diastolic 69–90; PULSE 83–103; RESP 16–18; TEMP 36.6–37.2; O2SAT 100
[2022-11-24] MEDS: ACETAMINOPHEN 325 MG TABLET 650 MG PO ×4 (04:10→23:48)
[2022-11-24] MEDS: IBUPROFEN 600 MG TABLET PO ×3 (04:10→16:37)
[2022-11-24 05:17] LABS: Hematocrit 28.2 % (37.0-47.0); Hemoglobin 9.3 g/dL (12.0-15.0)
--- NOTE | 2022-11-24 07:42 | PM.OBPNVD ---
OB - PN: Subj Subjective Date/time seen: 11/24/22 07:42 Interval history: pp day 1 mild anemia from pp hemorrhage doing well overall pain managed OB - PN: Obj Data Labs 11/24/22 04:01 Labs: Laboratory Results - last 24 hr 11/24/22 04:01 Hgb 9.3 L Hct 28.2 L OB - PN A/P Plan day: 1 Plan: routine care Time Spent With Patient Time: Total time spent is greater than 50% in coordination of care (as documented) at patient's floor/unit and/or counseling patient: Review of Systems Review of Systems: All systems reviewed & are unremarkable except as noted in HPI and below Exam Const: General: cooperative Chest: Chest palpation & inspection: normal inspection of the chest Resp: Effort & Inspection: normal respiratory effort Cardio: Rate: regular rate Rhythm: regular rhythm GI: Other: soft Skin: General skin exam: normal color Neuro: General: patient oriented x3 Extrem: Right lower extremity: edema Left lower extremity: edema Psych: Appearance: grossly normal
--- NOTE | 2022-11-24 08:18 | WPDANLDPN2 ---
Anes-Prog Note L&D Date/Time: 11/24/22 08:18 Comfortable throughout: labor and delivery Neuraxial method: epidural Epidural/Spinal procedure site: clean & non-tender Neuro status: Neuro function grossly intact. Cardiovascular status: normal Respiratory status: normal Airway patency: baseline Mental status: baseline Post-Op hydration status: normal Vital Signs: Last Vital Signs Temp 36.7 C 11/24/22 04:12 Pulse 89 11/24/22 04:12 Resp 18 11/24/22 04:12 BP 124/69 11/24/22 04:12 Pulse Ox 100 11/23/22 15:30 O2 Del Method Room Air 11/23/22 19:15 Pain score (VAS): 2/10 I/O: Intake & Output 11/23/22 11/24/22 11/24/22 23:59 07:59 15:59 Intake Total 300 650 Output Total 900 800 Balance -600 -150 Post-procedural complaints: none Patient feedback: Patient satisfied with anesthetic care.
[2022-11-24] MEDS: DOCUSATE SODIUM 100 MG CAPSULE PO ×2 (10:02→16:37)
[2022-11-24] MEDS: IRON SUCROSE COMPLEX 400 MG in SODIUM CHLORIDE 0.9% IV 250 ML 108 MG IVPB (10:05)
[2022-11-24] MEDS: TETANUS,DIPHTHERIA,AC PERTUSSIS ADULT (0.5 ML) BOOSTRIX IM (16:36)
[2022-11-24] MEDS: POLYSACCHARIDE IRON COMPLEX 150 MG CAPSULE PO (16:37)
--- NOTE | 2022-11-25 05:18 | P.PNOB_ITS ---
OB - PN: Subj Subjective Date/time seen: 11/25/22 05:18 Interval history: pp day 2 mild anemia from pp hemorrhage, IV infiltrated while receiving IV iron, plan or al doing well overall pain managed pt would like d/c home today OB - PN: Obj Data Labs 11/24/22 04:01 Labs: Laboratory Results - last 24 hr 11/24/22 04:01 Hgb 9.3 L Hct 28.2 L OB - PN A/P Time Spent With Patient Time: Total time spent is greater than 50% in coordination of care (as documented) at patient's floor/unit and/or counseling patient: Review of Systems Review of Systems: All systems reviewed & are unremarkable except as noted in HPI and below Exam Const: General: cooperative and healthy appearing Chest: Chest palpation & inspection: normal inspection of the chest Resp: Effort & Inspection: normal respiratory effort Cardio: Rate: regular rate Rhythm: regular rhythm GI: Other: soft Skin: General skin exam: normal color Extrem: General: normal to inspection Psych: Appearance: grossly normal
--- NOTE | 2022-11-25 05:20 | P.DS_ITS ---
DS: Admitting Diagnosis Discharge Date 11/25/22 Admitting Diagnosis IOL DS: Discharge Diagnosis Discharge Diagnosis (1) Vaginal delivery: Code(s): O80 - Encounter for full-term uncomplicated delivery Status: Acute (2) Gestational HTN: Code(s): O13.9 - Gestational [-induced] hypertension without significant proteinuria, unspecified trimester Status: Acute OB - DS: Summary OB Procedures : PIH Mgmt OB Procedures Intrapartum: Spontaneous Vag Delivery OB Procedures: : None Time Spent with Patient Time attestation: Total time spent providing and/or coordinating discharge services: DS: Data Data Completed and Pending Pending studies at discharge: Pending at discharge 11/23/22 12:11 Surgical [PTH] Routine Labs on day of discharge: Labs from last 24 hours 11/24/22 04:01 Hgb 9.3 L Hct 28.2 L Discharge Plan Discharge Attending physician on discharge: Goldy Laguna Discharging Clinician: Marcella Gaspar Patient Disposition: Home, Self-Care Activity: pelvic rest Diet: regular Patient Instructions: Antibiotic Form Stand Alone Forms: General Discharge Information Follow-up/Referrals: Marcella Gaspar CNM [Certified Nurse Bailing Machine Operator] - Discharge Medications: New polysaccharide iron complex 150 mg iron Capsule 150 mg PO BIDWM Qty: 30 0RF ibuprofen 600 mg Tablet 600 mg PO Q6H PRN (Reason: Cramping) Qty: 30 0RF Continued albuterol sulfate 90 mcg/actuation HFA aerosol inhaler 90 mcg INHALATION BID PRN (Reason: Wheezing) PNV cmb#95-ferrous fumarate-FA [] 28 mg iron- 800 mcg Tablet 1 tablet PO DAILY Discontinued valacyclovir 500 mg tablet 500 mg PO BID Date of admission: 11/22/22 00:01 Primary Care Provider: PHYSICIAN,FIRE SPRINKLER INSPECTOR Admitting Provider: Goldy Laguna Attending physician on admission: Goldy Laguna Condition: Stable
[2022-11-25] MEDS: IBUPROFEN 600 MG TABLET PO (05:34)
[2022-11-25] MEDS: MULTIVIT/MIN/PREN/FOL AC/IRON TABLET 1 TAB PO (09:10)
[2022-11-25] MEDS: POLYSACCHARIDE IRON COMPLEX 150 MG CAPSULE PO (09:10)
[2022-11-25] MEDS: ACETAMINOPHEN 325 MG TABLET 650 MG PO (09:11)
[2022-11-25] MEDS: DOCUSATE SODIUM 100 MG CAPSULE PO (09:12)
[2022-11-27 10:54] VITALS: BP 136/84; PULSE 90; RESP 20; TEMP 37.2; O2SAT 100
== END 2022-11-25 10:39 | disposition home or self-care (01) | DRG 560 ==
LOC: ANHLDR 00:05 → ANHOB2 11-23 15:16
PROVIDERS: Admitting Provider Obstetrics & Gynecology; Referring Provider Advanced Practice Midwife; Visit Provider Obstetrics & Gynecology
DX: O13.4 Gestational [pregnancy-induced] hypertension without significant proteinuria, complicating childbirth (principal); Z37.0 Single live birth; O72.1 Other immediate postpartum hemorrhage; Z3A.37 37 weeks gestation of pregnancy; Z23 Encounter for immunization; O42.92 Full-term premature rupture of membranes, unspecified as to length of time between rupture and onset of labor; O69.81X0 Labor and delivery complicated by cord around neck, without compression, not applicable or unspecified; O70.0 First degree perineal laceration during delivery; O99.02 Anemia complicating childbirth
CPT/HCPCS: 36415; 85014; 85018; 85025; 85055; 86592; 86850; 86900; 86901; 88307; 90471; 90686; 90715; A9270; G0008; J0290; J1756; J2590; J2795; J7050; J7120

== ENCOUNTER 2023-02-08 10:02 | Emergency (ER) | payer OTHER, SELFPAY ==
[2023-02-08 10:15] VITALS: BP 139/83; PULSE 95; RESP 20; TEMP 36.7; O2SAT 99
--- NOTE | 2023-02-08 10:34 | ED.GENADULT ---
HPI - General Adult General Chief complaint: Upper Respiratory Infection Stated complaint: cough,sore throat Source: patient, RN notes reviewed and old records reviewed Mode of arrival: ambulatory Limitations: no limitations History of Present Illness HPI narrative: 22-year-old female presents with complaints cough, congestion, sore throat, myalgias that started Sunday. Patient taking [id number] medications without relief. Patient denies chest pain, dizziness, weakness, shortness of breath. MD complaint: Warm salt water gargles. Increase fluids- warm and cold things can be soot Onset (ago): day(s) (5) Related Data Home Medications Medication Instructions Recorded Confirmed vit no.95-ferrous 1 tablet PO DAILY 08/25/22 02/08/23 fumarate 28 mg-folic acid 800 mcg tablet () Allergies Allergy/AdvReac Type Severity Reaction Status Date / Time coconut Allergy Unknown Swelling Verified 02/08/23 10:18 Wasp Allergy Unknown SWELLING Uncoded 11/14/22 12:27 AND NUMBNESS AT SITE Review of Systems Constitutional: Constitutional: Reports as per HPI, Reports fatigue and Denies weakness Eyes: Eyes: Reports no additional eye complaints ENT: Reports as per HPI, Denies dizziness, Reports nasal congestion and Reports sore throat Cardiovascular: Cardiovascular: Reports no additional cardiovascular complaints Respiratory: Respiratory: Reports as per HPI, Reports cough, Denies dyspnea and Denies wheezing Neurologic: Reports system reviewed and no additional complaints, except as documented PMF Past Medical History Medical History Asthma Family History Family History Grandparent No problems noted. Grandparent Diabetes mellitus Congestive heart failure Father Diabetes mellitus Social History Social History Smoking status: Current every day smoker Tobacco type: e-cigarettes/vaping Second hand tobacco smoke exposure: Yes Alcohol intake: never Substance use: never Lack of Transportation: No Lack of Food: Never True Current Housing: I Have Housing Concerned About Future Housing: No Difficulty Paying Gas/Electric Bills: No Difficulty Paying for Meds: No Currently Unemployed: No Education: High School Diploma/GED Difficulty w/ Childcare or Family Care: No Living arrangements: with family Spiritual care concerns: No Comments At the time of my signature, I reviewed and agree with the nursing past medical, surgical, social, and family history. There is no relevant family history pertinent to the patient complaint. Exam Const: General: cooperative, no acute distress, ill appearing and well nourished Nutritional Appearance: well nourished Orientation/consciousness: patient oriented x3 Limitations: no limitations HENMT: Head: normal to inspection and normocephalic Ears: external ears normal, TM's normal bilaterally, mastoids normal and Abnormal EAC present Face/Nose/Sinus: normal facial exam Face and sinus: normal facial exam Mouth: Yes Normal oral and palatal mucosa present, Yes oropharynx normal and Yes moist mucous membranes Throat: posterior oropharynx normal, tonsils normal, uvula midline and no uvular edema Eyes: General: appearance normal, both eyes and all related structures Sclera: sclerae normal Pupils: Equal, round and reactive pupils present Resp: Effort & Inspection: normal respiratory effort, able to speak in complete sentences, no audible wheezes, no cough, no respiratory distress and no retractions Auscultation: clear to auscultation bilaterally, no crackles, no rales, no rhonchi and no wheezes Cardio: Rate: regular rate Rhythm: regular rhythm Skin: General skin exam: normal color and no rashes or lesions noted Neuro: General: patient oriented x
== END 2023-02-08 10:59 | disposition home or self-care (01) ==
PROVIDERS: Emergency Provider Registered Nurse
DX: J06.9 Acute upper respiratory infection, unspecified (principal); F17.290 Nicotine dependence, other tobacco product, uncomplicated; J45.909 Unspecified asthma, uncomplicated
CPT/HCPCS: 87081; 87880; 99213; G0463

== ENCOUNTER 2023-03-15 18:05 | Emergency (ER) | payer OTHER, SELFPAY ==
--- NOTE | 2023-03-15 18:06 | ED.EAR ---
HPI - Ear Problem General Chief complaint: Ear Stated complaint: Right Ear Irritation Time Seen by Provider: 03/15/23 18:06 Source: patient Mode of arrival: ambulatory Limitations: no limitations History of Present Illness HPI Narrative: Abhilash is a 22-year-old female patient presenting to clinic today with complaints of right ear pain and congestion x2 weeks. She reports that she has had nasal congestion for 2 weeks. Is now feeling as though her right ear is full and is popping. Denies any fever or chills. Related Data Allergies Allergy/AdvReac Type Severity Reaction Status Date / Time coconut Allergy Unknown Swelling Verified 03/15/23 18:09 Wasp Allergy Unknown SWELLING Uncoded 03/15/23 18:09 AND NUMBNESS AT SITE Review of Systems Review of Systems: Pertinent positives per HPI. Patient denies any fever, chills, rash, headache, visual changes, dizziness, shortness of breath, chest pain, palpitations, nausea, vomiting, diarrhea, constipation, abdominal pain, or any urinary issues. PMFSH Past Medical History Medical History Asthma Family History Family History Grandparent No problems noted. Grandparent Diabetes mellitus Congestive heart failure Father Diabetes mellitus Social History Social History Smoking status: Current every day smoker Tobacco type: e-cigarettes/vaping Second hand tobacco smoke exposure: Yes Alcohol intake: never Substance use: never Lack of Transportation: No Lack of Food: Never True Current Housing: I Have Housing Concerned About Future Housing: No Difficulty Paying Gas/Electric Bills: No Difficulty Paying for Meds: No Currently Unemployed: No Education: High School Diploma/GED Difficulty w/ Childcare or Family Care: No Living arrangements: with family Spiritual care concerns: No Comments At the time of my signature, I reviewed and agree with the nursing past medical, surgical, social, and family history. There is no relevant family history pertinent to the patient complaint. Exam Narrative: General: Well-developed, well nourished, in no apparent distress Head: Normocephalic, atraumatic Eyes: Pupils equally round and reactive to light bilaterally, EOM intact, sclera and conjunctive clear, no discharge, lids normal Ears: Left tMs intact and clear, right TM intact, mild bulging, with fluid noted behind the TM, ear canals clear, no drainage, grossly hearing normal. Nose: Nares patent, clear discharge, no inflammation, no sinus tenderness. Mouth: Oral pharynx without lesions or masses, good dentition, MMM. Neck: Supple, trachea midline, no enlargement of anterior or posterior cervical nodes, no thyroid masses or goiter palpable. Cardio: Regular rate and rhythm, s1 and s2 normal, no murmur appreciated. Resp: Clear to auscultation bilaterally, no rhonchi, rales, wheezing or rubs Course Course Emergency Course: Portions of this record may have been created with voice recognition software. Level of Care: Express Care Visit Vital Signs Vital signs: Vital signs reviewed Medical Decision Making MDM Narrative Medical decision making narrative: At the time of visit patient is resting comfortably on the exam table. Patient appears to be nontoxic. Supportive measures were discussed with the patient and they voiced understanding discharge instructions and agrees to treatment plan. Return precautions reviewed Differential Diagnosis Differential Diagnosis: Otitis media, otitis eustachian tube dysfunction, cerumen impaction, upper respiratory infection, serous otitis Discharge Plan Discharge Clinical Impression: Acute serous otitis media Qualifiers: Laterality: right Recurrence: non-recurrent Qualified Code(s): H65.01 - Acute serous otitis medi
[2023-03-15 18:20] VITALS: BP 168/83; PULSE 105; RESP 20; TEMP 36.8; O2SAT 100
== END 2023-03-15 18:55 | disposition home or self-care (01) ==
PROVIDERS: Emergency Provider Nurse Practitioner Family; PCP Family Medicine
DX: H65.01 Acute serous otitis media, right ear (principal); F17.290 Nicotine dependence, other tobacco product, uncomplicated; J45.909 Unspecified asthma, uncomplicated
CPT/HCPCS: 99213; G0463

== ENCOUNTER 2023-10-12 14:41 | Emergency (ER) | payer OTHER, SELFPAY ==
--- NOTE | ~2023-10-12 | US_ITS ---
US pelvic complete w TV Ordering provider: Cristino Lloyd MD History: . rule out torsion, RLQ pain . Comparison: None. Technique: Transabdominal and endovaginal ultrasound of the pelvis (Doppler ultrasound interrogation techniques used as needed for this exam.) FINDINGS: CERVIX: Normal. UTERUS: Measures 7.6x 2.9x 6.7 cm in length which is within normal limits and is anteverted. No myom etrial masses. ENDOMETRIUM: Normal in thickness measuring 5.9 mm. No endometrial masses, cysts or fluid. CUL DE SAC: Trace of free fluid. RIGHT OVARY: Normal in size measuring 3.1x 2.1x 3 cm. Normal echotexture. Doppler vascular flow prese nt. LEFT OVARY: Normal in size measuring 3.8x 2.1x 2.9 cm. Normal echotexture. Doppler vascular flow pres ent. Mixed echogenicity lesion is seen in the left ovary measuring 2.1 x 2 x 1.9 cm which may be hemo rrhagic cyst. Follow-up advised. ADNEXA: Normal. No mass. IMPRESSION: Highly suggestive hemorrhagic cyst in the left ovary Otherwise, normal pelvic ultrasound. Reviewed, dictated and finalized at location A. IMPRESSION: Highly suggestive hemorrhagic cyst in the left ovary Otherwise, normal pelvic u ltrasound.
--- NOTE | ~2023-10-12 | CT_ITS ---
EXAMINATION: CT abdomen pelvis w con DATE: 10/12/2023 16:33 INDICATION: Right lower quadrant abdominal pain. Fever. TECHNIQUE: Computed tomography (CT) of the abdomen and pelvis was performed with 100 mL Omnipaque 350 intravenous contrast. Automated exposure control and iterative reconstruction technique were employe d. The dose-length product was 1514.51 mGy-cm. COMPARISON: Pelvis ultrasound 10/12/2023 FINDINGS: The visualized portions of the lung bases demonstrate minimal atelectasis. There are a few nodules measuring up to 3 mm, likely benign. No pleural effusion. The heart size is normal. No perica rdial effusion. The liver is normal. There are changes of cholecystectomy. The spleen, pancreas, adre nal glands, and right kidney are normal. There is a 7 mm cyst in left kidney. There are no dilated lo ops of bowel. The appendix is normal. There is a mildly enlarged ileocolic lymph node. There is no fr ee intraperitoneal fluid. There is mild thoracic and lumbar spondylosis. IMPRESSION: 1. Mildly enlarged ileocolic lymph node, likely reactive. Reviewed, dictated and finalized at location A.
--- NOTE | 2023-10-12 15:06 | ED.ABDPAIN ---
HPI - Abdominal Pain General Chief Complaint: Abdominal Pain Stated Complaint: abd pain Time Seen by Provider: 10/12/23 14:53 History of Present Illness HPI narrative: This is a 23-year-old female presenting to the ED for evaluation of lower quadrant abdominal pain and pelvic pain with tenderness and pain radiating to her back. Patient states she has been feeling feverish, heart racing with palpitations sensations and having intermittent pain that comes and goes in waves in her right lower quadrant. She was seen at another facility earlier today and had blood work, UA and a CT scan without contrast did not apparently show anything according to the patient she was discharged on oral Augmentin. She had worsening pain at home and called her PCP who told to return immediately to the emergency department for evaluation once again. I do not have records from previous hospital visit today were the CT results. Patient did not receive any kind ultrasonography. She denies any vaginal pain, vaginal bleeding, concerns for STIs. Denies any present nauseousness, vomiting, chest pain, shortness a breath. Her pain comes in waves and feels like a stabbing localized to her right lower quadrant that wraps around to her back. Never had any history of kidney stones or kidney problems in the past. Does have a history of gallbladder room. No history of ovarian cyst or torsion. test was negative at outside facility today. Related Data Allergies Allergy/AdvReac Type Severity Reaction Status Date / Time coconut Allergy Unknown Swelling Verified 10/12/23 14:47 Wasp Allergy Unknown SWELLING Uncoded 10/12/23 14:47 AND NUMBNESS AT SITE Review of Systems Review of Systems: As reviewed above in the HPI [facility] Past Medical History Medical History Asthma Family History Family History Grandparent No problems noted. Grandparent Diabetes mellitus Congestive heart failure Father Diabetes mellitus Social History Social History Smoking status: Current every day smoker Tobacco type: e-cigarettes/vaping Second hand tobacco smoke exposure: Yes Alcohol intake: never Substance use: never Lack of Transportation: No Lack of Food: Never True Current Housing: I Have Housing Concerned About Future Housing: No Difficulty Paying Gas/Electric Bills: No Difficulty Paying for Meds: No Currently Unemployed: No Education: High School Diploma/GED Difficulty w/ Childcare or Family Care: No Living arrangements: with family Spiritual care concerns: No Exam Narrative: GENERAL: Uncomfortable appearing but not in any apparent distress answering all questions appropriately HEAD: [Normocephalic, atraumatic.] EYES: [PERRLA and EOMI.] ENT: Nares clear, no rhinorrhea or epistaxis. Mucous membranes moist. NECK: Supple. CHEST: [Clear to auscultation. No respiratory distress.] HEART: Tachycardic rate with regular rhythm. No murmur heard. [Normal peripheral pulses.] ABDOMEN: [Soft, nondistended], tenderness to palpation focally in the right lower quadrant no right-sided CVA tender. Positive obturators sign. Pain worse with movement and positional., [No rigidity or guarding] EXTREMITIES: Normal range of motion. [No edema.] SKIN: Warm, dry, no rash. NEURO: [No focal deficits]. Alert and oriented [x3.] PSYCH: [Normal mood and affect.] Course Vital Signs Vital signs: Vital Signs Pulse Rate 115 H 10/12/23 16:46 Respiratory Rate 18 10/12/23 16:46 Blood Pressure 127/83 10/12/23 16:46 Pulse Oximetry 100 10/12/23 16:46 Pulse Rate 101 H 10/12/23 17:32 Respiratory Rate 15 10/12/23 17:32 Blood Pressure 131/73 10/12/23 17:32 Pulse Oximetry 95 10/12/23 17:32 MDM - Abdominal Pain MDM [facility]
[2023-10-12] MEDS: LACTATED RINGERS 1,000 ML 999 ML IV CONT ×2 (15:38→17:08)
[2023-10-12] MEDS: HYDROmorphone HCL INJ (*CRX) 1 MG/ML SYR IV PUSH (15:39)
[2023-10-12] MEDS: ONDANSETRON INJ 4 MG/2 ML VIAL IV PUSH (15:39)
[2023-10-12 15:51] LABS: Basophils Percent Auto 0.2 % (0.2-1.2); Eosinophils Percent Auto 0.5 % (0-4.4); Hematocrit 40.4 % (37.0-47.0); Immature Granulocyte Absolute 0.01 K/mm3 (0.00-0.031); Immature Granulocyte Percent A 0.1 % (0-0.5); Lymphocytes Absolute Auto 0.56 K/mm3 (0.9-3.2); Lymphocytes Percent Auto 6.9 % (18.3-44.2); Mean Corpuscular HGB Conc 32.2 g/dl (32-36); Mean Corpuscular Hemoglobin 26.6 pg (26-34); Mean Corpuscular Volume 82.8 fl (80-100); Monocytes Absolute Auto 0.3 K/mm3 (0.1-0.6); Neutrophils Absolute Auto 7.1 K/mm3 (1.3-6.7); Neutrophils Percent Auto 88.3 % (45.5-73.1); Platelet Count Result 273 k/mm3 (150-375); Red Blood Count 4.88 M/mm3 (4.2-5.4); Red Cell Distribution Width 14.6 % (11.5-14.5); White Blood Count 8.1 K/mm3 (4.5-10.0)
[2023-10-12 16:00] LABS: Alanine Aminotransferase 124 U/L (6-35); Albumin Level 4.4 g/dL (3.5-5.1); Alkaline Phosphatase 100 U/L (38-126); Anion Gap 13 mmol/L (4-12); Aspartate Amino Transferase 109 U/L (14-36); Bilirubin,Total 0.3 mg/dL (0.2-1.3); Blood Urea Nitrogen 9 mg/dL (7-17); Calcium 8.9 mg/dL (8.4-10.2); Carbon Dioxide 19 mmol/L (22-30); Chloride 103 mmol/L (98-107); Estimated CRCL calculation 131 ml/min; Estimated Glomerular Filt Rate > 60; Glucose 102 mg/dL (65-110); Lipase 54 U/L (23-300); Potassium 3.9 mmol/L (3.4-5.0); Prothrombin Time 13.4 Seconds (11.1-14.7); Sodium 135 mmol/L (137-145)
[2023-10-12 16:01] LABS: Lactic Acid Reflex 1.2 mmol/L (0.7-2.0); Partial Thromboplastin Time 26.3 Seconds (22.3-36.8)
[2023-10-12 16:17] LABS: Beta HCG Quantitative < 2.39 mIU/ML
[2023-10-12 16:46] VITALS: BP 127/83; PULSE 115; RESP 18; O2SAT 100
[2023-10-12 16:51] LABS: Add Urine Microscopic? YES; Appearance Urine Cloudy (Clear); Bacteria Urine None Seen /hpf; Bilirubin Urine Negative (Negative); Blood Urine Negative (Negative); Color Urine Yellow (Yellow); Glucose Urine UA Negative (Negative); Ketones Urine Negative (Negative); Leukocyte Esterase Ur Negative LEU/UL (Negative); Nitrate Urine Negative (Negative); Non Pathogenic Casts 0-2; Protein Urine Negative (Negative); RBC Urine 0-2 /hpf (0-2); Specific Grav Ur 1.017 (1.001-1.035); Squamous Epithelial Cell Urine Occasional /hpf (Few); Urobilinogen Urine 0.2 mg/dL (<2.0); pH Urine 7.5 (5.0-9.0)
[2023-10-12] MEDS: HYDROmorphone HCL INJ (*CRX) 1 MG/ML SYR 0.5 MG IV PUSH (17:08)
[2023-10-12 17:32] VITALS: BP 131/73; PULSE 101; RESP 15; O2SAT 95
== END 2023-10-12 18:23 | disposition home or self-care (01) ==
PROVIDERS: Emergency Provider Student in an Organized Health Care Education/Training Program
DX: N83.202 Unspecified ovarian cyst, left side (principal); J45.909 Unspecified asthma, uncomplicated; F17.210 Nicotine dependence, cigarettes, uncomplicated
CPT/HCPCS: 36415; 74177; 76830; 76856; 80053; 81001; 83605; 83690; 84702; 85025; 85610; 85730; 87086; 87088; 96361; 96374; 96375; 96376; 99284; J1170; J2405; J7120; Q9967

== ENCOUNTER 2024-07-16 17:51 | Emergency (ER) | payer SELFPAY ==
--- OUTSIDE RECORDS SUMMARY | 2024-07-16 17:53 | XMS_ITS | Data Portability ---
Author Organization [facility] [place] Address [address] [place] [address] [place] [address] Assessment Encounter Date Assessment Date Assessment LastModified by Organization Details LastModified Time 11/15/2022 11/15/2022 Patient is _36__weeks . Discussed plan. Not available 11/15/2022 18:10:58 Plan of Treatment Reminders Order Date Submit Date Provider Last Modified By Organization Details Last Modified Time Details Appointments None record ed. Lab None record ed. Referral None record ed. Procedures None record ed. Surgeries None record ed. Imaging non-st ress test 023 11/16/19 23 [email or web address] [place], [address], [place], [address], 17:59:39 [place], obstet ivonne, follow -up 023 11/16/19 23 [email or web address] [place], [address], [place], [address], 19:26:56 Medication Orders None record ed. Patient TargetsNo targets recorded. Patient InstructionsNo instructions recorded. Reason for Referral None Reported. Results Created Date Observation Date Name Description Value Unit Range Abnormal Flag Note LastModifiedBy Organization Detail LastModifiedTime 10/19/19 23 10/18/2022 CBC W/DIF F WBC 7.7 10'3/ uL 3.6-10 .2 Not Available [facility] (Lab) [address], [place], [address], 10/19/2022 06:14:02 10/19/19 23 10/18/2022 CBC W/DIF F RBC 3.95 10'6/ uL (based on docume nted legal sex) 4.10-5 .30 low Not Available [facility] (Lab) [address], [place], [address], 10/19/2022 06:14:02 10/19/19 23 10/18/2022 CBC W/DIF F HGB 11.8 g/dL (based on docume nted legal sex) 11.9-1 5.8 low Not Available [facility] (Lab) [address], [place], [address], 10/19/2022 06:14:02 10/19/19 23 10/18/2022 CBC W/DIF F HCT 37.6 % (based on docume nted legal sex) 37.4-4 8.3 Not Available [facility] (Lab) [address], [place], [address], 10/19/2022 06:14:02 10/19/19 23 10/18/2022 CBC W/DIF F MCV 95.2 fL 82.0-9 9.0 Not Available [facility] (Lab) [address], [place], [address], 10/19/2022 06:14:02 10/19/19 23 10/18/2022 CBC W/DIF F MCH 29.9 pg 27.0-3 3.0 Not Available [facility] (Lab) [address], [place], [address], 10/19/2022 06:14:02 10/19/19 23 10/18/2022 CBC W/DIF F MCHC 31.4 g/dL 32.0-3 6.0 low Not Available [facility] (Lab) [address], [place], [address], 10/19/2022 06:14:02 10/19/19 23 10/18/2022 CBC W/DIF F RDW 13.1 % 11.0-1 5.0 Not Available [facility] (Lab) [address], [place], [address], 10/19/2022 06:14:02 10/19/19 23 10/18/2022 CBC W/DIF F plt 268 10'3/ uL 150-45 0 Not Available [facility] (Lab) [address], [place], [address], 10/19/2022 06:14:02 10/19/19 23 10/18/2022 CBC W/DIF F MPV 10.7 fL 9.8-12 .7 Not Available [facility] (Lab) [address], [place], [address], 10/19/2022 06:14:02 10/19/19 23 10/18/2022 CBC W/DIF F NRBC's 0.0 % 0 Not Available [facility] (Lab) [address], [place], [address], 10/19/2022 06:14:02 10/19/19 23 10/18/2022 CBC W/DIF F absolute NRBCs 0.0 10'3/ uL 0 Not Available [facility] (Lab) [address], [place], [address], 10/19/2022 06:14:02 10/19/19 23 10/18/2022 CBC W/DIF F neutrophils 75.6 % 37.0-7 2.0 high Not Available [facility] (Lab) [address], [place], [address], 10/19/2022 06:14:02 10/19/19 23 10/18/2022 CBC W/DIF F lymphocytes 17.6 % 16.0-4 8.0 Not Available [facility] (Lab) [address], [place], [address], 10/19/2022 06:14:02 10/19/19 23 10/18/2022 CBC W/DIF F monocytes 5.2 % 4.0-14 .0 Not Available [facility] (Lab) [address], [place], [address], 10/19/2022 06:14:02 10/19/19 23 10/18/2022 CBC W/DIF F eosinophils 1.0 % 0.0-9. 0 Not Available [facility] (Lab) [address], [place], [address], 10/19/2022 06:14:02 10/19/19 23 10/18/2022 CBC W/DIF F basophils 0.3 % 0.0-2. 0 Not Available [facility] (Lab) [address], [place], [address], 10/19/2022 06:14:02 10/19/19 23 10/18/2022 CBC W/DIF F immature granulocytes 0.3 % no define d refere nce range Not Available [facility] (Lab) [address], [place], [address], 10/19/2022 06:14:02 10/19/19 23 10/18/2022 CBC W/DIF F absolute neutrophils 5.8 10'3/ uL 1.1-6. 0 Not Available [facility] (Lab) [address], [place], [address], 10/19/2022 06:14:02 10/19/19 23 10/18/2022 CBC W/DIF F absolute lymphocytes 1.4 10'3/ uL 0.7-3. 4 Not Available [facility] (Lab) [address] [place], [address], 10/19/2022 06:14:02 10/19/19 23 10/18/2022 CBC W/DIF F absolute monocytes 0.4 10'3/ uL 0.3-1. 0 Not Available [facility] (Lab) [address] [place], [address], 10/19/2022 06:14:02 10/19/19 23 10/18/2022 CBC W/DIF F absolute eosinophils 0.1 10'3/ uL 0.0-0. 6 Not Available [facility] (Lab) [address] [facility], [place], [address], 10/19/2022 06:14:02 10/19/19 23 10/18/2022 CBC W/DIF F absolute basophils 0.0 10'3/ uL 0.0-0. 1 Not Available [facility] (Lab) [address] [facility], [place], [address], 10/19/2022 06:14:02 10/19/19 23 10/18/2022 CBC W/DIF F absolute immature granulocytes 0.0 10'3/ uL 0.00-0 .10 2022 3:51 AM: P indic ates parti al resul ts on a panel have been relea sed. Addit ional resul ts will follo w. 2022 3:51 AM: This resul t has been final verif ied. No addit ional or hammer ed resul ts are expec susana. Not Available [facility] (Lab) [address], [place], [address], 10/19/2022 06:14:02 10/19/19 23 10/18/2022 PROTE IN/CR EATIN INE RATIO , URINE creatinine, urine 89.1 mg/dL R-No refer ence range estab lishe d for this assay Not Available [facility] (Lab) [address], [place], [address], 10/19/2022 06:14:02 10/19/19 23 10/18/2022 PROTE IN/CR EATIN INE RATIO , URINE protein, urine 12 mg/dL R-No refer ence range estab lishe d for this assay Not Available [facility] (Lab) [address] [facility], [place], [address], 10/19/2022 06:14:02 10/19/19 23 10/18/2022 PROTE IN/CR EATIN INE RATIO , URINE protein/crea tinine ratio, urine 0.13 . No Refer ence Range avail able for Rando m Urine s. A prote in to creat inine ratio of >=0.1 9 is a good predi ctor of signi fican t prote inuri a. A level of <0.14 can rule out signi fican t prote inuri a. Not Available [facility] (Lab) [address] [facility], [place], [address], 10/19/2022 06:14:02 10/19/19 23 10/18/2022 URIC ACID uric acid 4.1 mg/dL 2.3-6. 6 Not Available [facility] (Lab) [address] [facility], [place], [address], 10/19/2022 06:14:03 10/19/19 23 10/18/2022 CMP(C OMPRE HENSI VE METAB OLIC PANEL ) sodium 135 mmol/ L 133-14 6 Not Available [facility] (Lab) [address] [facility], [place], [address], 10/19/2022 06:14:03 10/19/19 23 10/18/2022 CMP(C OMPRE HENSI VE METAB OLIC PANEL ) potassium 4.0 mmol/ L 3.5-5. 1 Not Available [facility] (Lab) [address] [facility], [place], [address], 10/19/2022 06:14:03 10/19/19 23 10/18/2022 CMP(C OMPRE HENSI VE METAB OLIC PANEL ) chloride 106 mmol/ L 98-107 Not Available [facility] (Lab) [address] [place], [address], 10/19/2022 06:14:03 10/19/19 23 10/18/2022 CMP(C OMPRE HENSI VE METAB OLIC PANEL ) carbon dioxide 20 mmol/ L 21-31 low Not Available [facility] (Lab) [address] [facility], [place], [address], 10/19/2022 06:14:03 10/19/19 23 10/18/2022 CMP(C OMPRE HENSI VE METAB OLIC PANEL ) anion gap 9 mmol/ L 4-13 Not Available [facility] (Lab) [address] [facility], [place], [address], 10/19/2022 06:14:03 10/19/19 23 10/18/2022 CMP(C OMPRE HENSI VE METAB OLIC PANEL ) blood urea nitrogen 7 mg/dL 7-25 Not Available [facility] (Lab) [address] [facility], [place], [address], 10/19/2022 06:14:03 10/19/19 23 10/18/2022 CMP(C OMPRE HENSI VE METAB OLIC PANEL ) creatinine 0.58 mg/dL 0.60-1 .30 low Not Available [facility] (Lab) [address] [facility], [place], [address], 10/19/2022 06:14:03 10/19/19 23 10/18/2022 CMP(C OMPRE HENSI VE METAB OLIC PANEL ) egfrcr (CKD-epi 2020) >90 mL/mi n/1.7 3_m2 >=60 Not Available [facility] (Lab) [address], [place], [address], 10/19/2022 06:14:03 10/19/19 23 10/18/2022 CMP(C OMPRE HENSI VE METAB OLIC PANEL ) calcium 8.7 mg/dL 8.3-10 .5 Not Available [facility] (Lab) [address] [facility], [place], [address], 10/19/2022 06:14:03 10/19/19 23 10/18/2022 CMP(C OMPRE HENSI VE METAB OLIC PANEL ) glucose 82 mg/dL 70-100 Not Available [facility] (Lab) [address], [place], [address], 10/19/2022 06:14:03 10/19/19 23 10/18/2022 CMP(C OMPRE HENSI VE METAB OLIC PANEL ) protein, total 6.5 g/dL 6.4-8. 3 Not Available [facility] (Lab) [address] [facility], [place], [address], 10/19/2022 06:14:03 10/19/19 23 10/18/2022 CMP(C OMPRE HENSI VE METAB OLIC PANEL ) albumin 3.4 g/dL 3.5-5. 0 low Not Available [facility] (Lab) [address] [facility], [place], [address], 10/19/2022 06:14:03 10/19/19 23 10/18/2022 CMP(C OMPRE HENSI VE METAB OLIC PANEL ) ALT 121 units /L 9-43 high Not Available [facility] (Lab) [address] [facility], [place], [address], 10/19/2022 06:14:03 10/19/19 23 10/18/2022 CMP(C OMPRE HENSI VE METAB OLIC PANEL ) alkaline phosphatase 134 units /L 34-104 high Not Available [facility] (Lab) [address] [facility], [place], [address], 10/19/2022 06:14:03 10/19/19 23 10/18/2022 CMP(C OMPRE HENSI VE METAB OLIC PANEL ) AST 77 units /L 13-39 high Not Available [facility] (Lab) [address] [facility], [place], [address], 10/19/2022 06:14:03 10/19/19 23 10/18/2022 CMP(C OMPRE HENSI VE METAB OLIC PANEL ) bilirubin, total 0.4 mg/dL 0.2-1. 2 Not Available [facility] (Lab) [address] [facility], [place], [address], 10/19/2022 06:14:03 11/02/19 23 11/01/2022 CBC W/DIF F WBC 8.4 10'3/ uL 3.6-10 .2 Not Available [facility] (Lab) [address], [place], [address], 11/02/2022 03:51:00 11/02/19 23 11/01/2022 CBC W/DIF F RBC 3.83 10'6/ uL (based on docume nted legal sex) 4.10-5 .30 low Not Available [facility] (Lab) [address] [facility], [place], [address], 11/02/2022 03:51:00 11/02/19 23 11/01/2022 CBC W/DIF F HGB 11.5 g/dL (based on docume nted legal sex) 11.9-1 5.8 low Not Available [facility] (Lab) [address] [facility], [place], [address], 11/02/2022 03:51:00 11/02/19 23 11/01/2022 CBC W/DIF F HCT 34.6 % (based on docume nted legal sex) 37.4-4 8.3 low Not Available [facility] (Lab) [address], [place], [address], 11/02/2022 03:51:00 11/02/19 23 11/01/2022 CBC W/DIF F MCV 90.3 fL 82.0-9 9.0 Not Available [facility] (Lab) [address] [facility], [place], [address], 11/02/2022 03:51:00 11/02/19 23 11/01/2022 CBC W/DIF F MCH 30.0 pg 27.0-3 3.0 Not Available [facility] (Lab) [address] [facility], [place], [address], 11/02/2022 03:51:00 11/02/19 23 11/01/2022 CBC W/DIF F MCHC 33.2 g/dL 32.0-3 6.0 Not Available [facility] (Lab) [address], [place], [address], 11/02/2022 03:51:00 11/02/19 23 11/01/2022 CBC W/DIF F RDW 13.4 % 11.0-1 5.0 Not Available [facility] (Lab) [address], [place], [address], 11/02/2022 03:51:00 11/02/19 23 11/01/2022 CBC W/DIF F plt 283 10'3/ uL 150-45 0 Not Available [facility] (Lab) [address], [place], [address], 11/02/2022 03:51:00 11/02/19 23 11/01/2022 CBC W/DIF F MPV 11.7 fL 9.8-12 .7 Not Available [facility] (Lab) [address], [place], [address], 11/02/2022 03:51:00 11/02/19 23 11/01/2022 CBC W/DIF F NRBC's 0.0 % 0 Not Available [facility] (Lab) [address], [place], [address], 11/02/2022 03:51:00 11/02/19 23 11/01/2022 CBC W/DIF F absolute NRBCs 0.0 10'3/ uL 0 Not Available [facility] (Lab) [address] [facility], [place], [address], 11/02/2022 03:51:00 11/02/19 23 11/01/2022 CBC W/DIF F neutrophils 72.9 % 37.0-7 2.0 high Not Available [facility] (Lab) [address], [place], [address], 11/02/2022 03:51:00 11/02/19 23 11/01/2022 CBC W/DIF F lymphocytes 18.5 % 16.0-4 8.0 Not Available [facility] (Lab) [address] [facility], [place], [address], 11/02/2022 03:51:00 11/02/19 23 11/01/2022 CBC W/DIF F monocytes 5.6 % 4.0-14 .0 Not Available [facility] (Lab) [address] [place], [address], 11/02/2022 03:51:00 11/02/19 23 11/01/2022 CBC W/DIF F eosinophils 2.1 % 0.0-9. 0 Not Available [facility] (Lab) [address] [facility], [place], [address], 11/02/2022 03:51:00 11/02/19 23 11/01/2022 CBC W/DIF F basophils 0.4 % 0.0-2. 0 Not Available [facility] (Lab) [address] [facility], [place], [address], 11/02/2022 03:51:00 11/02/19 23 11/01/2022 CBC W/DIF F immature granulocytes 0.5 % no define d refere nce range Not Available [facility] (Lab) [address] [facility], [place], [address], 11/02/2022 03:51:00 11/02/19 23 11/01/2022 CBC W/DIF F absolute neutrophils 6.1 10'3/ uL 1.1-6. 0 high Not Available [facility] (Lab) [address] [place], [address], 11/02/2022 03:51:00 11/02/19 23 11/01/2022 CBC W/DIF F absolute lymphocytes 1.6 10'3/ uL 0.7-3. 4 Not Available [facility] (Lab) [address] [place], [address], 11/02/2022 03:51:00 11/02/19 23 11/01/2022 CBC W/DIF F absolute monocytes 0.5 10'3/ uL 0.3-1. 0 Not Available [facility] (Lab) [address] [facility], [place], [address], 11/02/2022 03:51:00 11/02/19 23 11/01/2022 CBC W/DIF F absolute eosinophils 0.2 10'3/ uL 0.0-0. 6 Not Available [facility] (Lab) [address] [facility], [place], [address], 11/02/2022 03:51:00 11/02/19 23 11/01/2022 CBC W/DIF F absolute basophils 0.0 10'3/ uL 0.0-0. 1 Not Available [facility] (Lab) [address] [facility], [place], [address], 11/02/2022 03:51:00 11/02/19 23 11/01/2022 CBC W/DIF F absolute immature granulocytes 0.0 10'3/ uL 0.00-0 .10 2022 2:24 AM: P indic ates parti al resul ts on a panel have been relea sed. Addit ional resul ts will follo w. 2022 2:24 AM: This resul t has been final verif ied. No addit ional or hammer ed resul ts are expec susana. Not Available [facility] (Lab) [address] [facility], [place], [address], 11/02/2022 03:51:00 11/02/19 23 11/01/2022 URIC ACID uric acid 4.1 mg/dL 2.3-6. 6 Not Available [facility] (Lab) [address] [facility], [place], [address], 11/02/2022 03:51:01 11/02/19 23 11/01/2022 CMP(C OMPRE HENSI VE METAB OLIC PANEL ) sodium 136 mmol/ L 133-14 6 Not Available [facility] (Lab) [address] [facility], [place], [address], 11/02/2022 03:51:01 11/02/19 23 11/01/2022 CMP(C OMPRE HENSI VE METAB OLIC PANEL ) potassium 4.3 mmol/ L 3.5-5. 1 Not Available [facility] (Lab) [address] [facility], [place], [address], 11/02/2022 03:51:01 11/02/19 23 11/01/2022 CMP(C OMPRE HENSI VE METAB OLIC PANEL ) chloride 106 mmol/ L 98-107 Not Available [facility] (Lab) [address] [facility], [place], [address], 11/02/2022 03:51:01 11/02/19 23 11/01/2022 CMP(C OMPRE HENSI VE METAB OLIC PANEL ) carbon dioxide 21 mmol/ L 21-31 Not Available [facility] (Lab) [address] [facility], [place], [address], 11/02/2022 03:51:01 11/02/19 23 11/01/2022 CMP(C OMPRE HENSI VE METAB OLIC PANEL ) anion gap 9 mmol/ L 4-13 Not Available [facility] (Lab) [address] [place], [address], 11/02/2022 03:51:01 11/02/19 23 11/01/2022 CMP(C OMPRE HENSI VE METAB OLIC PANEL ) blood urea nitrogen 7 mg/dL 7-25 Not Available [facility] (Lab) [address] [facility], [place], [address], 11/02/2022 03:51:01 11/02/19 23 11/01/2022 CMP(C OMPRE HENSI VE METAB OLIC PANEL ) creatinine 0.65 mg/dL 0.60-1 .30 Not Available [facility] (Lab) [address] [facility], [place], [address], 11/02/2022 03:51:01 11/02/19 23 11/01/2022 CMP(C OMPRE HENSI VE METAB OLIC PANEL ) egfrcr (CKD-epi 2020) >90 mL/mi n/1.7 3_m2 >=60 Not Available [facility] (Lab) [address] [facility], [place], [address], 11/02/2022 03:51:01 11/02/19 23 11/01/2022 CMP(C OMPRE HENSI VE METAB OLIC PANEL ) calcium 8.9 mg/dL 8.3-10 .5 Not Available [facility] (Lab) [address] [facility], [place], [address], 11/02/2022 03:51:01 11/02/19 23 11/01/2022 CMP(C OMPRE HENSI VE METAB OLIC PANEL ) glucose 86 mg/dL 70-100 Not Available [facility] (Lab) [address] [facility], [place], [address], 11/02/2022 03:51:01 11/02/19 23 11/01/2022 CMP(C OMPRE HENSI VE METAB OLIC PANEL ) protein, total 6.4 g/dL 6.4-8. 3 Not Available [facility] (Lab) [address], [place], [address], 11/02/2022 03:51:01 11/02/19 23 11/01/2022 CMP(C OMPRE HENSI VE METAB OLIC PANEL ) albumin 3.3 g/dL 3.5-5. 0 low Not Available [facility] (Lab) [address], [place], [address], 11/02/2022 03:51:01 11/02/19 23 11/01/2022 CMP(C OMPRE HENSI VE METAB OLIC PANEL ) ALT 19 units /L 9-43 Not Available [facility] (Lab) [address], [place], [address], 11/02/2022 03:51:01 11/02/19 23 11/01/2022 CMP(C OMPRE HENSI VE METAB OLIC PANEL ) alkaline phosphatase 140 units /L 34-104 high Not Available [facility] (Lab) [address] [facility], [place], [address], 11/02/2022 03:51:01 11/02/19 23 11/01/2022 CMP(C OMPRE HENSI VE METAB OLIC PANEL ) AST 18 units /L 13-39 Not Available [facility] (Lab) [address] [facility], [place], [address], 11/02/2022 03:51:01 11/02/19 23 11/01/2022 CMP(C OMPRE HENSI VE METAB OLIC PANEL ) bilirubin, total 0.3 mg/dL 0.2-1. 2 Not Available [facility] (Lab) [address] [facility], [place], [address], 11/02/2022 03:51:01 11/09/19 23 11/08/2022 CBC W/DIF F WBC 9.8 10'3/ uL 3.6-10 .2 Not Available [facility] (Lab) [address] [facility], [place], [address], 11/09/2022 05:50:25 11/09/1911/08/2022 CBC W/DIF F RBC 3.93 10'6/ uL (based on docume nted legal sex) 4.10-5 .30 low Not Available [facility] (Lab) [address] [place], [address], 11/09/2022 05:50:25 11/09/1911/08/2022 CBC W/DIF F HGB 11.8 g/dL (based on docume nted legal sex) 11.9-1 5.8 low Not Available [facility] (Lab) [address] [place], [address], 11/09/2022 05:50:25 11/09/19 23 11/08/2022 CBC W/DIF F HCT 35.7 % (based on docume nted legal sex) 37.4-4 8.3 low Not Available [facility] (Lab) [address], [place], [address], 11/09/2022 05:50:25 11/09/19 23 11/08/2022 CBC W/DIF F MCV 90.8 fL 82.0-9 9.0 Not Available [facility] (Lab) [address], [place], [address], 11/09/2022 05:50:25 11/09/1911/08/2022 CBC W/DIF F MCH 30.0 pg 27.0-3 3.0 Not Available [facility] (Lab) [address], [place], [address], 11/09/2022 05:50:25 11/09/19 23 11/08/2022 CBC W/DIF F MCHC 33.1 g/dL 32.0-3 6.0 Not Available [facility] (Lab) [address], [place], [address], 11/09/2022 05:50:25 11/09/19 23 11/08/2022 CBC W/DIF F RDW 13.7 % 11.0-1 5.0 Not Available [facility] (Lab) [address], [place], [address], 11/09/2022 05:50:25 11/09/19 23 11/08/2022 CBC W/DIF F plt 279 10'3/ uL 150-45 0 Not Available [facility] (Lab) [address] [place], [address], 11/09/2022 05:50:25 11/09/19 23 11/08/2022 CBC W/DIF F MPV 11.8 fL 9.8-12 .7 Not Available [facility] (Lab) [address] [place], [address], 11/09/2022 05:50:25 11/09/1911/08/2022 CBC W/DIF F NRBC's 0.0 % 0 Not Available [facility] (Lab) [address] [facility], [place], [address], 11/09/2022 05:50:25 11/09/19 23 11/08/2022 CBC W/DIF F absolute NRBCs 0.0 10'3/ uL 0 Not Available [facility] (Lab) [address] [facility], [place], [address], 11/09/2022 05:50:25 11/09/19 23 11/08/2022 CBC W/DIF F neutrophils 75.5 % 37.0-7 2.0 high Not Available [facility] (Lab) [address] [facility], [place], [address], 11/09/2022 05:50:25 11/09/19 23 11/08/2022 CBC W/DIF F lymphocytes 17.1 % 16.0-4 8.0 Not Available [facility] (Lab) [address] [facility], [place], [address], 11/09/2022 05:50:25 11/09/19 23 11/08/2022 CBC W/DIF F monocytes 3.9 % 4.0-14 .0 low Not Available [facility] (Lab) [address] [facility], [place], [address], 11/09/2022 05:50:25 11/09/19 23 11/08/2022 CBC W/DIF F eosinophils 2.8 % 0.0-9. 0 Not Available [facility] (Lab) [address] [facility], [place], [address], 11/09/2022 05:50:25 11/09/19 23 11/08/2022 CBC W/DIF F basophils 0.4 % 0.0-2. 0 Not Available [facility] (Lab) [address] [facility], [place], [address], 11/09/2022 05:50:25 11/09/19 23 11/08/2022 CBC W/DIF F immature granulocytes 0.3 % no define d refere nce range Not Available [facility] (Lab) [address] [facility], [place], [address], 11/09/2022 05:50:25 11/09/19 23 11/08/2022 CBC W/DIF F absolute neutrophils 7.4 10'3/ uL 1.1-6. 0 high Not Available [facility] (Lab) [address] [facility], [place], [address], 11/09/2022 05:50:25 11/09/19 23 11/08/2022 CBC W/DIF F absolute lymphocytes 1.7 10'3/ uL 0.7-3. 4 Not Available [facility] (Lab) [address] [facility], [place], [address], 11/09/2022 05:50:25 11/09/19 23 11/08/2022 CBC W/DIF F absolute monocytes 0.4 10'3/ uL 0.3-1. 0 Not Available [facility] (Lab) [address] [facility], [place], [address], 11/09/2022 05:50:25 11/09/19 23 11/08/2022 CBC W/DIF F absolute eosinophils 0.3 10'3/ uL 0.0-0. 6 Not Available [facility] (Lab) [address] [facility], [place], [address], 11/09/2022 05:50:25 11/09/1911/08/2022 CBC W/DIF F absolute basophils 0.0 10'3/ uL 0.0-0. 1 Not Available [facility] (Lab) [address] [place], [address], 11/09/2022 05:50:25 11/09/19 23 11/08/2022 CBC W/DIF F absolute immature granulocytes 0.0 10'3/ uL 0.00-0 .10 023 3:49 AM: P indic ates parti al resul ts on a panel have been relea sed. Addit ional resul ts will follo w. 023 3:49 AM: This resul t has been final verif ied. No addit ional or hammer ed resul ts are expec susana. Not Available [facility] (Lab) [address], [place], [address], 11/09/2022 05:50:25 11/09/19 23 11/08/2022 PROTE IN/CR EATIN INE RATIO , URINE creatinine, urine 40.6 mg/dL R-No refer ence range estab lishe d for this assay Not Available [facility] (Lab) [address], [place], [address], 11/09/2022 05:50:25 11/09/19 23 11/08/2022 PROTE IN/CR EATIN INE RATIO , URINE protein, urine 6 mg/dL R-No refer ence range estab lishe d for this assay Not Available [facility] (Lab) [address], [place], [address], 11/09/2022 05:50:25 11/09/19 23 11/08/2022 PROTE IN/CR EATIN INE RATIO , URINE protein/crea tinine ratio, urine 0.15 . No Refer ence Range avail able for Rando m Urine s. A prote in to creat inine ratio of >=0.1 9 is a good predi ctor of signi fican t prote inuri a. A level of <0.14 can rule out signi fican t prote inuri a. Not Available [facility] (Lab) [address], [place], [address], 11/09/2022 05:50:25 11/09/19 23 11/08/2022 URIC ACID uric acid 4.3 mg/dL 2.3-6. 6 Not Available [facility] (Lab) [address], [place], [address], 11/09/2022 05:50:26 11/09/19 23 11/08/2022 CMP(C OMPRE HENSI VE METAB OLIC PANEL ) sodium 137 mmol/ L 133-14 6 Not Available [facility] (Lab) [address], [place], [address], 11/09/2022 05:50:26 11/09/19 23 11/08/2022 CMP(C OMPRE HENSI VE METAB OLIC PANEL ) potassium 4.1 mmol/ L 3.5-5. 1 Not Available [facility] (Lab) [address], [place], [address], 11/09/2022 05:50:26 11/09/19 23 11/08/2022 CMP(C OMPRE HENSI VE METAB OLIC PANEL ) chloride 106 mmol/ L 98-107 Not Available [facility] (Lab) [address], [place], [address], 11/09/2022 05:50:26 11/09/19 23 11/08/2022 CMP(C OMPRE HENSI VE METAB OLIC PANEL ) carbon dioxide 20 mmol/ L 21-31 low Not Available [facility] (Lab) [address] [place], [address], 11/09/2022 05:50:26 11/09/19 23 11/08/2022 CMP(C OMPRE HENSI VE METAB OLIC PANEL ) anion gap 11 mmol/ L 4-13 Not Available [facility] [id number]|2024-07-16 18:01:45|2024-07-16 18:01:45|ED.BACK||||"HPI - Back Pain/Injury General Chief Complaint: Back Pain/Injury Stated Complaint: my back is hurting Time Seen by Provider: 07/16/24 17:52 History of Present Illness HPI Narrative: 24-year-old female with history of obesity presents to the emergency department for low back pain and headache. Patient states she has had diffuse lower back pain for the past 4 days. She denies injury or trauma. States the pain is worse with movement and better at rest. She took Tylenol with minimal improvement this morning. Denies saddle anesthesia, bowel or bladder incontinence, urinary retention, surgeries are procedures to her back, abdominal pain, dysuria or hematuria. She is currently on her menstrual cycle. She is also reporting a diffuse headache since 5:00 a.m.. She describes it as a band around her head. Denies head injury trauma, vision changes, focal numbness or weakness, nuchal rigidity. Related Data Allergies Allergy/AdvReac Type Severity Reaction Status Date / Time coconut Allergy Unknown Swelling Verified 10/12/23 14:47 Wasp Allergy Unknown SWELLING Uncoded 10/12/23 14:47 AND NUMBNESS AT SITE Review of Systems Review of Systems: All systems reviewed & are unremarkable except as noted in HPI and below PMFSH Past Medical History Medical History Asthma Family History Family History Grandparent No problems noted. Grandparent Diabetes mellitus Congestive heart failure Father Diabetes mellitus Social History Social History Smoking status: Current every day smoker Tobacco type: e-cigarettes/vaping Second hand tobacco smoke exposure: Yes Alcohol intake: never Substance use: never Lack of Transportation: No Lack of Food: Never True Current Housing: I Have Housing Concerned About Future Housing: No Difficulty Paying Gas/Electric Bills: No Difficulty Paying for Meds: No Currently Unemployed: No Education: High School Diploma/GED Difficulty w/ Childcare or Family Care: No Living arrangements: with family Spiritual care concerns: No Exam Narrative: GENERAL: Well-appearing, well-nourished, and in no acute distress. HEAD: Normocephalic, atraumatic. EYES: PERRLA and EOMI. ENT: Nares clear, no rhinorrhea or epistaxis. Mucous membranes moist. NECK: Supple. BACK: Mild midline lumbar spinous tenderness and left paraspinous tenderness without overlying skin changes, crepitus, step-offs or deformities CHEST: Clear to auscultation. No respiratory distress. HEART: Regular rate and rhythm. No murmur heard. Normal peripheral pulses. ABDOMEN: Soft, nontender, nondistended, normal active bowel sounds. EXTREMITIES: Normal range of motion. No edema. SKIN: Warm, dry, no rash. NEURO: No focal deficits. Alert and oriented x4. Cranial nerves 2-12 intact. Strength out of 5 in BUE and BLE. Sensation intact throughout. No saddle anesthesia. Course Vital Signs Vital signs: Vital Signs Temperature 98.2 F 07/16/24 18:00 Pulse Rate 120 H 07/16/24 18:00 Respiratory Rate 21 H 07/16/24 18:00 Blood Pressure 152/91 H 07/16/24 18:00 Pulse Oximetry 100 07/16/24 18:00 Oxygen Delivery Room Air 07/16/24 18:00 Temperature 98.2 F 07/16/24 18:00 Pulse Rate 117 H 07/16/24 18:31 Respiratory Rate 22 H 07/16/24 18:31 Blood Pressure 145/94 H 07/16/24 18:31 Pulse Oximetry 100 07/16/24 18:31 Oxygen Delivery Room Air 07/16/24 18:00 MDM - Back Pain/Injury MDM Narrative Medical decision making narrative: 24-year-old female presents to the emergency department for atraumatic low back pain for the past 4 days and headache since 5:00 a.m. this morning. No injury or trauma. The patient does have tachycardia upon arrival and is hypertensive at 152/91, otherwise is afebrile and nontoxic appearing and resting comfortably in the exam bed. Exam is notable for the above. Patient has no focal or lateralizing deficits. No evidence of cauda equina or or severe cord compression. Back pain is consistent with MSK etiology and headache consistent with tension headache. Will treat symptomatically with migraine cocktail, Flexeril, lidocaine patch and re-evaluate. Will also obtain a UPT and UA. negative. UA with trace ketones, no UTI. Patient updated on results. She reports significant improvement after the medications. Vital signs have normalized. Will send ibuprofen, Flexeril lidocaine patches to the pharmacy. Advised follow-up with PCP and discussed strict ED return precautions. She is agreeable with the plan verbalized understanding. Discharged stable condition. Lab Data Labs: Lab Results 07/16/24 07/16/24 Range/Units 18:00 18:12 Urine Color Dark yellow (Yellow) Urine Appearance Clear (Clear) Urine pH 5.5 (5.0-9.0) Ur Specific [place] 1.029 (1.001-1.035) Urine Protein Trace (Negative) mg/dL Urine Glucose (UA) Negative (Negative) mg/dL Urine Ketones Trace H (Negative) mg/dL Ur Blood (Man) Negative (Negative) Urine Nitrate Negative (Negative) Urine Bilirubin Negative (Negative) Urine Urobilinogen 1.0 (<2.0) mg/dL Leukocyte Esterase Rfl Negative (Negative) EMMA/UL Urine RBC 0-2 (0-2) /hpf Urine WBC 0-5 (0-3) /hpf Ur Squamous Epith Cells None seen (Few) /hpf Urine Bacteria None seen /hpf Urine Casts 3-5 POC Urine HCG, Qual Negative (Negative) Discharge Plan Discharge Clinical Impression: Strain of lumbar region, Acute tension headache Patient Disposition: Home Condition: Stable Instructions: Antibiotic Form, Acute Headache (DC), Acute Low Back Pain (ED), Lower Back Exercises (ED) Additional Instructions: Follow-up closely with her primary care provider. Return to the emergency department if you develop numbness in your groin, lose control of her bowel or bladder, you develop vision changes, focal numbness or weakness, abdominal pain, fever, other new or worsening symptoms. Patient Language: Sami Prescriptions: New cyclobenzaprine 10 mg tablet 10 mg PO TID PRN (Reason: muscle spasm) Qty: 14 0RF ibuprofen 800 mg tablet 800 mg PO TID PRN (Reason: pain) Qty: 20 0RF lidocaine 5 % adhesive patch,medicated 1 patch topical DAILY Qty: 15 0RF Rx Instructions: leave on most painful area for up to 12 hrs. do not use more than 1 patch in a 24-hour period. No Action prednisone 20 mg tablet 40 mg PO DAILY 5 Days Qty: 10 0RF oxycodone 5 mg capsule 5 mg PO Q8H PRN (Reason: pain) Qty: 10 0RF ondansetron 4 mg tablet,disintegrating 4 mg PO Q8H PRN (Reason: nausea and vomiting) Qty: 10 0RF dicyclomine 20 mg tablet 20 mg PO TID PRN (Reason: abdominal pain) Qty: 14 0RF acetaminophen [Tylenol Extra Strength] 500 mg tablet 1,000 mg PO Q6H PRN (Reason: pain) Qty: 30 0RF Follow-up/Referrals: Clifford Hogue MD [Physician] - UNKNOWN,DOCTOR [Primary Care Provider] - "
--- OUTSIDE RECORDS SUMMARY | 2024-07-16 17:53 | XMS_ITS | Data Portability ---
Author Organization [place] [facility], Main Office Address [address] [place] [address] Care Team Providers Care Tuck Pointer Helper Name Role Phone MI PIZANO Primary Care Provider [phone] KATE WILLS Psychiatrist Assessment No assessment recorded. Plan of Treatment Reminders Order Date Submit Date Provider Last Modified By Organization Details Last Modified Time Details Appointments None recorded. Lab CBC w/ auto diff 2023 024 [facility] (Lab), [address] [place], [address], 4 15:23:22 CMP, serum or plasma 2023 024 [email or web address] [facility] (Lab), [address] [place], [address], 4 10:51:53 lipid panel, serum 2023 024 [facility] (Lab), [address] [place], [address], 4 15:23:22 TSH + free T4, serum 2023 024 [facility] (Lab), [address] [place], [address], 4 15:23:22 hepatitis C virus Ab, serum 2023 024 [facility], [address] [place], [address], 4 10:38:57 HbA1c (hemoglobi n A1c), blood [email or web address] [address], [place], [address], 4 10:38:[address] referral - Please call patient to schedule. 2023 024 [facility], [address], [place], [address], 5 09:55:54 Procedures None recorded. Surgeries None recorded. Imaging None recorded. Medication Orders escitalopr am 10 mg tablet 2023 024 [id number], [address], [place], [place], [id number], 4 09:39:05 hydroxyzin e HCl 25 mg tablet 2023 024 [email or web address], [address], [place], [place], [id number], 10:02:27 Patient TargetsNo targets recorded. Patient Instructions Encounter Date Encounter Id Patient Instructions Last Modified By Organization Details Last Modified Time 10/09/2023 [id number] Follow up in 6 weeks Obtain labs Prescriptions sent to pharmacy Tests: None Referral: None Recommend: MOVIE ACTOR for well woman exam Tetanus vaccine Not available 10/09/2023 10:00:12 11/20/2023 [id number] Follow up in 6 months Tests: Referral: Marija [id number] iety Recommend: Influenza vaccine Not available 11/20/2023 09:43:17 Reason for Referral Psychiatrist Referral for An xiety Please call patient to schedule. Referring Physician: Mi Pizano, Internal Medicine, Encounter Date: 11/20/2023 Results Created Date Observation Date Name Description Value Unit Range Abnormal Flag Note LastModifiedBy Organization Detail LastModifiedTime 10/12/19 24 10/12/2023 CT, abdom en + pelvi s, w/ contr ast No observ ation record ed. Not Available 2023 12:16:53 10/19/19 24 10/12/2023 US, pelvi s, trans abdom inal + trans vagin al No observ ation record ed. Not Available 2023 17:01:30 Result Notes None recorded. Problems Name Problem SNOMED Code Status Onset Date Resolution Date Notes Provider Name and Address Organization Details Recorded Time Anxiety 68105448 Active 024 Mi Pizano APRN [address], [place], [address] , [employer] 4 09:55:25 Panic attack 293228698 Active 024 Mi Pizano APRN [address], [address], [place], [address] , [employer] 4 09:59:14 Problem Notes None recorded. Procedures Surgical History None recorded. Imaging Results Imaging Date Name Status LastModified by Organization Details LastModified Time 10/12/2023 CT, abdomen + pelvis, w/ contrast completed Information not available 10/13/2023 12:16:53 10/12/2023 US, pelvis, transabdominal + transvaginal completed Information not available 10/23/2023 17:01:30 Procedure Notes None recorded. Medical Equipment None Reported. Allergies No known drug allergies Medications Name Sig Start Date Stop Date Status Note LastModified by Organization Details LastModified Time albuterol sulfate 2.5 mg/3 mL (0.083 %) solution for nebulizatio n 10/08 completed Not Available Not Available Not Available prednisone 20 mg tablet 10/08 completed Not Available Not Available Not Available oxycodone-a cetaminophe n 5 mg-325 mg tablet 10/08 completed Not Available Not Available Not Available benzonatate 100 mg capsule 10/08 completed Not Available Not Available Not Available cephalexin 500 mg capsule 10/08 completed Not Available Not Available Not Available hydroxyzine HCl 25 mg tablet Take 1 tablet 3 times a day by oral route as needed, for panic attack. 2023 active Not Available Not Available Not Curlykamilah shukla escitalopra m 10 mg tablet Take 1 tablet every day by oral route, for anxiety/d epression . 11/19 completed Not Available Not Available Not Available ProAir HFA 90 mcg/actuati on aerosol inhaler INL 2 PFS PO Q 4 H PRF RESPIRATO RY PROBLEMS 10/08 completed Not Available Not Available Not Available albuterol sulf 90 mcg/actuati on breath activated powder inhaler,sen sor Inhale 2 puffs every 4 hours by inhalatio n route. active Not Available Not Available No t Available Vitals Date Recorded Body height Body mass index (BMI) Body weight Body temperature Heart rate Oxygen saturation Oxygen saturation in Arterial blood by Pulse oximetry Systolic blood pressure Diastolic blood pressure Provider Name and Address Organization Details Last Updated DateTime 4 177.8 cm 38.3 kg/m2 868770. 16 g 97.5 [degF] 86 /min 99 % 99 % 114 mm[Hg] 62 mm[Hg] Rosamaria Alford MA [place] [facility] 09:23:49 Date Recorded Body height Body mass index (BMI) Body weight Body temperature Heart rate Oxygen saturation Oxygen saturation in Arterial blood by Pulse oximetry Pain severity - 0-10 verbal numeric rating [Score] - Reported Systolic blood pressure Diastolic blood pressure Provider Name and Address Organization Details Last Updated DateTime 4 177.8 cm 37.2 kg/m2 690251. 42 g 96.1 [degF] 115 /min 97 % 97 % 0 108 mm[Hg] 60 mm[Hg] Rosamaria Alford MA [employer] [facility] 09:19:06 Social History Question Answer Notes LastModified by Organizat ion Details LastModified Time Tobacco Smoking Status Former Smoker Rosamaria Alford MA null, [facility] 10/09/2023 09:31:06 What Is Your Level Of Caffeine Consumption? Heavy Information not available 10/09/2023 In The 14 Days Before Symptom Onset, Have You Had Close Contact With A Laboratory-confi rmed COVID-19 While That Case Was Ill? No Information not available 10/09/2023 In The 14 Days Before Symptom Onset, Have You Had Close Contact With A Person Who Is Under Investigation For COVID-19 While That Person Was Ill? No Information not available 10/09/2023 What Type Of Diet Are You Following? REGULAR Information not available 10/09/2023 Which Illicit Or Recreational Drugs Have You Used? Marijuana Information not available 10/09/2023 Have There Been Any Changes To Your Family Or Social Situation? No Information not available 10/09/2023 When Did You Quit Smoking? 1-5yearssincelastci garette Information not available 10/09/2023 Do You Use Insect Repellent Routinely? No Information not available 10/09/2023 Where Do You Live? SingleLevelHouse Information not available 10/09/2023 What Was The Date Of Your Most Recent Tobacco Screening? 11/20/2023 Information not available 11/20/2023 How Many Children Do You Have? 1 Information not available 10/09/2023 Do You Have Any Pets? Yes Information not available 10/09/2023 What Is Your Relationship Status? Single Information not available 10/09/2023 Do You Use Your Seat Belt Or Car Seat Routinely? Yes Information not available 10/09/2023 Do You Have Smoke And Carbon Monoxide Detectors In Your Home? Yes Information not available 10/09/2023 At What Age Did You Start Smoking Tobacco? 17 Information not available 10/09/2023 Are You Passively Exposed To Smoke? Yes Information not available 10/09/2023 Are There Any Smokers In Your House? No Information not available 10/09/2023 How Much Tobacco Do You Smoke? 1 PPW Information not available 10/09/2023 Do You Use Sunscreen Routinely? No Information not available 10/09/2023 Have You Recently Traveled Abroad? No Information not available 10/09/2023 Have You Used IV Drugs? No Information not available 10/09/2023 Do You Have Any Dietary Restrictions? No Information not available 10/09/2023 How Many Years Have You Used E-cigarettes Or Vape? 4 Information not available 10/09/2023 Sex: Female Functional Status Question Answer Note LastModified by Organizat ion Details LastModified Time Do you use any illicit or recreational drugs? Yes Information not available 10/09/2023 Do you or have you ever used any other forms of tobacco or nicotine? Yes Information not available 10/09/2023 What is your level of alcohol consumption? Occasional Information not available 10/09/2023 Do you or have you ever used smokeless tobacco? Never used smokeless tobacco Information not available 10/09/2023 Are you currently employed? 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 Current user of electronic cigarettes Information not available 10/09/2023 What is your exercise level? Occasional Information not available 10/09/2023 Mental Status Question Answer Note LastModified by Organization D etails LastModified Time Do you feel stressed (tense, restless, nervous, or anxious, or unable to sleep at night)? [id number] Information not available 10/09/2023 Family History Relationship Description Onset Age of this Age Resolved Age Notes LastModified by Organization Details LastModified Time Father Diabetes mellitus [email or web address] Not available 2023 09:27:46 Father Hyperlipidem ia [email or web address] Not available 2023 09:28:13 Mother Diabetes mellitus [email or web address] Not available 2023 09:27:46 Mother Heart disease [email or web address] Not available 2023 09:27:57 Mother Blood coagulation disorder [email or web address] Not available 2023 09:28:31 Mother Hypertensive disorder [email or web address] Not available 2023 09:28:56 Brother Diabetes mellitus all three bother s [email or web address] Not available 10/09/2023 09:27:46 Medical History No medical history recorded. Gynecological History Statement/Question Response How many live births 1 Date of Last Pap Current Control Method None Age at Menarche 15 Date of LMP 10/04/2023 Sexually Active? Y Obstetrics History GPAL:G 4 P 0 1 3 1 Type Value Multiple Births 0 Full Term 0 Induced 0 Spontaneous 3 Premature 1 Living 1 Ectopics 0 Total 4 Immunizations Vaccine Type Date Status Note Provider Nam e and Address Organization Details Recorded Time Hib, unspecified formulation 1 completed Mi Pizano APRN [address], [address], [place], [address], [employer] 10/09/2023 09:46:35 meningococcal B, OMV 8 completed Mi Pizano APRN [address], [address], [place], [address], [email or web address] 10/09/2023 09:46:35 IPV [address], [place], [address], [email or web address] 10/09/2023 09:46:35 meningococcal ACWY, unspecified formulation [address], [place], [address], [email or web address] 10/09/2023 09:46:35 MMR [address], [place], [address], [email or web address] 10/09/2023 09:46:35 MMR [address], [place], [address], [email or web address] 10/09/2023 09:46:35 pneumococcal conjugate PCV 7 1 mark Pizano APRN [address], [address], [place], [address], [email or web address] 10/09/2023 09:46:35 Tdap 2 completed Mi Pizano APRN [address], [address], [place], [address], [employer] [facility] [employer] [facility] 10/09/2023 09:46:35 Tdap 3 completed Mi Pizano APRN [address], [place], [address], [employer] [facility] [employer] [facility] 10/09/2023 09:46:35 Novel Qafdkeixl-L2U6-83, all formulations 9 completed Mi Pizano APRN [address], [place], [address], [employer] [facility] [employer] [facility] 10/09/2023 09:46:35 Novel Klaqyhjee-T3C2-17, all formulations 9 completed Mi Pizano APRN [address], [address], [place], [address], [employer] [facility] 10/09/2023 09:46:35 varicella 6 completed Mi Pizano APRN [address], [address], [place], [address], [employer] [facility] [employer] [facility] 10/09/2023 09:46:35 varicella 4 completed Mi Pizano APRN [address], [place], [address], [employer] [facility] [employer] [facility] 10/09/2023 09:46:35 Hep B, unspecified formulation [address], [place], [address], [employer] [facility] [employer] [facility] 10/09/2023 09:46:35 Hep B, unspecified formulation 1 completed Mi Pizano APRN [address], [place], [address], [employer] [facility] [employer] [facility] 10/09/2023 09:46:35 polio, unspecified formulation 6 completed Mi Pizano, JAKE [address], [address], [place], [address], [employer] [facility] [employer] [facility] 10/09/2023 09:46:35 polio, unspecified formulation 1 completed Mi Pizano APRN [address], [place], [address], [employer] [facility] [employer] [facility] 10/09/2023 09:46:35 polio, unspecified formulation 1 completed Mi Pizano APRN [address], [address], [place], [address], [employer] [facility] [employer] [facility] 10/09/2023 09:46:35 polio, unspecified formulation 4 completed Mi Pizano APRN [address], [place], [address], [employer] [facility] [employer] 10/09/2023 09:46:35 Influenza, split virus, trivalent, PF 1 completed Mi Pizano APRN [address], [place], [address], [employer] [facility] [employer] [facility] 10/09/2023 09:46:35 Influenza, split virus, trivalent, PF 2 completed Mi Pizano APRN [address], [place], [address], [employer] [facility] [employer] [facility] 10/09/2023 09:46:35 HPV, bivalent 1 completed Mi Pizano APRN [address], [place], [address], [employer] [facility] [employer] 10/09/2023 09:46:35 HPV, bivalent 0 completed Mi Pizano APRN [address], [place], [address], [employer] [facility] [employer] [facility] 10/09/2023 09:46:35 HPV, quadrivalent 1 completed Mi Pizano APRN [address], [address], [place], [address], [employer] 10/09/2023 09:46:35 Hep B, adolescent or pediatric 1 completed Mi Pizano APRN [address], [place], [address], [employer] 10/09/2023 09:46:35 meningococcal MCV4P 8 completed Mi Pizano APRN [address], [place], [address], [employer] 10/09/2023 09:46:35 DTaP 1 completed Mi Pizano APRN [address], [place], [address], [email or web address] 10/09/2023 09:46:35 DTaP [address], [place], [address], [employer] 10/09/2023 09:46:35 DTaP, unspecified formulation 6 [address], [place], [address], [email or web address] 10/09/2023 09:46:35 DTaP, unspecified formulation 1 [address], [place], [address], [email or web address] 10/09/2023 09:46:35 DTaP, unspecified formulation 4 [address], [place], [address], [email or web address] 10/09/2023 09:46:36 Influenza, live, quadrivalent, intranasal 3 completed Mi Pizano APRN [address], [address], [place], [address], [employer] 10/09/2023 09:46:36 Influenza, live, quadrivalent, intranasal 0 completed Mi Pizano, [employer] CENTER SUPERVISOR [address], [place], [address], [employer] 10/09/2023 09:46:36 Influenza, split virus, quadrivalent, PF 3 completed Mi Pizano, [employer] CENTER SUPERVISOR [address], [place], [address], [employer] 10/09/2023 09:46:36 Influenza, split virus, quadrivalent, PF 8 completed Mi Pizano, [employer] CENTER SUPERVISOR [address], [place], [address], [employer] 10/09/2023 09:46:36 Hep A, unspecified formulation 2 completed Mi Pizano [employer] CENTER SUPER[employer]OR [address], [place], [address], [employer] 10/09/2023 09:46:36 Hep A, unspecified formulation 0 completed Mi Pizano, [employer] CENTER SUPERVISOR [address], [place], [address], [employer] 10/09/2023 09:46:36 Past Encounters Encounter ID Performer Location Encounter Start Date Encounter Closed Date Diagnosis/Indication Diagnosis SNOMED-CT Code Diagnosis ICD10 Code Diagnosis Note [id number] Van headley MD [facility] [address] [place] [address] 10/09/2023 09:14:00 10/09/2023 10:05:57 Diabetes mellitus screening 772058060 Z13.1 Hyperlipid emia screening 965711936 Z13.220 Screening for disorder 767448823 Z13.9 Thyroid di sorder screening 753606545 Z13.29 Hepatitis C screening 41 1439211 Z11.59 Anxiety 19431937 F41.9 Panic attack 748622066 F 41.0 [id number] Van headley MD [facility] Internal Med [address] [place] [address] 11/20/2023 09:08:48 11/20/2023 09:46:36 Anxiety 62479155 F41.9 [id number] Kate Wills NP [facility] [address] [place] [address] 12/04/2023 10:15:31 12/04/2023 11:54:30 [id number] Kate Wills NP [facility] [address] [place] [address] 01/15/2024 09:53:49 01/15/2024 10:21:01 Health Concerns Section Related Observation LastModified by Organization Detai ls LastModified Time None Recorded Concern Status LastModified by Organization Details LastModified Time None Recorded Advance Directives Directive None Recorded Payers Encounter Date Sequence Insurance Name Policy Number Policy Kessler Covered Member ID Kessler Member ID Guarantor Name 10/09/2023 1 [facility] ON OR AFTER 09/02/20 (MEDICAID REPLACEMENT - HMO) [facility] [place] [id number] [facility] [place] 11/20/2023 1 [facility] ON OR AFTER 09/02/20 (MEDICAID REPLACEMENT - HMO) [facility] [place] [id number] [facility] [place] Notes Date Note Type Note Provider Name and Address Organization Details Recorded Time 10/09/2023 text/html Ana presents today to establish care. She states that she needs a form filled out for work physical, she will bring it in this week. She also states that she has anxiety that she needs addressed. She states that she will stay up late at night and worry about trivial items. Mi Pizano, JAKE [address] [facility], [place], [address], [facility] [employer] 10/09/2023 10:02:34 11/20/2023 text/html Ana presents today for 6 week follow up for new medication. She was prescribed escitalopram for anxiety and panic attacks. She states that she took it for 3 weeks and could not sleep at night, so she quit taking the medication. 10/09/2023Ana presents today to establish care. She states that she needs a form filled out for work physical, she will bring it in this week. She also states that she has anxiety that she needs addressed. She states that she will stay up late at night and worry about trivial items. Mi Pizano, [employer] CENTER SUPERVISOR [address] [facility] [facility] [address], [place], [address], [place] [facility] 11/20/2023 09:43:38 OBGyn Episode No OBEpisode recorded.
[2024-07-16 18:00] VITALS: BP 152/91; PULSE 120; RESP 21; TEMP 36.8; O2SAT 100
--- NOTE | 2024-07-16 18:01 | ED_ITS ---
HPI - Back Pain/Injury General Chief Complaint: Back Pain/Injury Stated Complaint: my back is hurting Time Seen by Provider: 07/16/24 17:52 History of Present Illness HPI Narrative: 24-year-old female with history of obesity presents to the emergency department for low back pain and headache. Patient states she has had diffuse lower back pain for the past 4 days. She denies injury or trauma. States the pain is worse with movement and better at rest. She took Tylenol with minimal improvement this morning. Denies saddle anesthesia, bowel or bladder incontinence, urinary retention, surgeries are procedures to her back, abdominal pain, dysuria or hematuria. She is currently on her menstrual cycle. She is also reporting a diffuse headache since 5:00 a.m.. She describes it as a band around her head. Denies head injury trauma, vision changes, focal numbness or weakness, nuchal rigidity. Related Data Allergies Allergy/AdvReac Type Severity Reaction Status Date / Time coconut Allergy Unknown Swelling Verified 10/12/23 14:47 Wasp Allergy Unknown SWELLING Uncoded 10/12/23 14:47 AND NUMBNESS AT SITE Review of Systems Review of Systems: All systems reviewed & are unremarkable except as noted in HPI and below PMFSH Past Medical History Medical History Asthma Family History Family History Grandparent No problems noted. Grandparent Diabetes mellitus Congestive heart failure Father Diabetes mellitus Social History Social History Smoking status: Current every day smoker Tobacco type: e-cigarettes/vaping Second hand tobacco smoke exposure: Yes Alcohol intake: never Substance use: never Lack of Transportation: No Lack of Food: Never True Current Housing: I Have Housing Concerned About Future Housing: No Difficulty Paying Gas/Electric Bills: No Difficulty Paying for Meds: No Currently Unemployed: No Education: High School Diploma/GED Difficulty w/ Childcare or Family Care: No Living arrangements: with family Spiritual care concerns: No Exam Narrative: GENERAL: Well-appearing, well-nourished, and in no acute distress. HEAD: Normocephalic, atraumatic. EYES: PERRLA and EOMI. ENT: Nares clear, no rhinorrhea or epistaxis. Mucous membranes moist. NECK: Supple. BACK: Mild midline lumbar spinous tenderness and left paraspinous tenderness without overlying skin changes, crepitus, step-offs or deformities CHEST: Clear to auscultation. No respiratory distress. HEART: Regular rate and rhythm. No murmur heard. Normal peripheral pulses. ABDOMEN: Soft, nontender, nondistended, normal active bowel sounds. EXTREMITIES: Normal range of motion. No edema. SKIN: Warm, dry, no rash. NEURO: No focal deficits. Alert and oriented x4. Cranial nerves 2-12 intact. Strength out of 5 in BUE and BLE. Sensation intact throughout. No saddle anesthesia. Course Vital Signs Vital signs: Vital Signs Temperature 98.2 F 07/16/24 18:00 Pulse Rate 120 H 07/16/24 18:00 Respiratory Rate 21 H 07/16/24 18:00 Blood Pressure 152/91 H 07/16/24 18:00 Pulse Oximetry 100 07/16/24 18:00 Oxygen Delivery Room Air 07/16/24 18:00 Temperature 98.2 F 07/16/24 18:00 Pulse Rate 117 H 07/16/24 18:31 Respiratory Rate 22 H 07/16/24 18:31 Blood Pressure 145/94 H 07/16/24 18:31 Pulse Oximetry 100 07/16/24 18:31 Oxygen Delivery Room Air 07/16/24 18:00 MDM - Back Pain/Injury MDM Narrative Medical decision making narrative: 24-year-old female presents to the emergency department for atraumatic low back pain for the past 4 days and headache since 5:00 a.m. this morning. No injury or trauma. The patient does have tachycardia upon arrival and is hypertensive at 152/91, otherwise is afebrile and nontoxic appearing and resting comfortably in the exam bed. Exam is notable for the above. Patient has no focal or lateralizing deficits. No evidence of cauda equina or or severe cord compression. Back pain is consistent with MSK etiology and headache consistent with tension headache. Will treat symptomatically with migraine cocktail, Flexeril, lidocaine patch and re-evaluate. Will also obtain a UPT and UA. negative. UA with trace ketones, no UTI. Patient updated on results. She reports significant improvement after the medications. Vital signs have normalized. Will send ibuprofen, Flexeril lidocaine patches to the pharmacy. Advised follow-up with PCP and discussed strict ED return precautions. She is agreeable with the plan verbalized understanding. Discharged stable condition. Lab Data Labs: Lab Results 07/16/24 07/16/24 Range/Units 18:00 18:12 Urine Color Dark yellow (Yellow) Urine Appearance Clear (Clear) Urine pH 5.5 (5.0-9.0) Ur Specific Moore 1.029 (1.001-1.035) Urine Protein Trace (Negative) mg/dL Urine Glucose (UA) Negative (Negative) mg/dL Urine Ketones Trace H (Negative) mg/dL Ur Blood (Man) Negative (Negative) Urine Nitrate Negative (Negative) Urine Bilirubin Negative (Negative) Urine Urobilinogen 1.0 (<2.0) mg/dL Leukocyte Esterase Rfl Negative (Negative) EMMA/UL Urine RBC 0-2 (0-2) /hpf Urine WBC 0-5 (0-3) /hpf Ur Squamous Epith Cells None seen (Few) /hpf Urine Bacteria None seen /hpf Urine Casts 3-5 POC Urine HCG, Qual Negative (Negative) Discharge Plan Discharge Clinical Impression: Strain of lumbar region, Acute tension headache Patient Disposition: Home Condition: Stable Instructions: Antibiotic Form, Acute Headache (DC), Acute Low Back Pain (ED), Lower Back Exercises (ED) Additional Instructions: Follow-up closely with her primary care provider. Return to the emergency department if you develop numbness in your groin, lose control of her bowel or bladder, you develop vision changes, focal numbness or weakness, abdominal pain, fever, other new or worsening symptoms. Patient Language: Tunisian Prescriptions: New cyclobenzaprine 10 mg tablet 10 mg PO TID PRN (Reason: muscle spasm) Qty: 14 0RF ibuprofen 800 mg tablet 800 mg PO TID PRN (Reason: pain) Qty: 20 0RF lidocaine 5 % adhesive patch,medicated 1 patch topical DAILY Qty: 15 0RF Rx Instructions: leave on most painful area for up to 12 hrs. do not use more than 1 patch in a 24-hour period. No Action prednisone 20 mg tablet 40 mg PO DAILY 5 Days Qty: 10 0RF oxycodone 5 mg capsule 5 mg PO Q8H PRN (Reason: pain) Qty: 10 0RF ondansetron 4 mg tablet,disintegrating 4 mg PO Q8H PRN (Reason: nausea and vomiting) Qty: 10 0RF dicyclomine 20 mg tablet 20 mg PO TID PRN (Reason: abdominal pain) Qty: 14 0RF acetaminophen [Tylenol Extra Strength] 500 mg tablet 1,000 mg PO Q6H PRN (Reason: pain) Qty: 30 0RF Follow-up/Referrals: Clifford Hogue MD [Physician] - UNKNOWN,DOCTOR [Primary Care Provider] -
[2024-07-16 18:11] VITALS: PULSE 117; RESP 16; O2SAT 100
[2024-07-16 18:13] LABS: BEDSIDEPREGUCG Negative (Negative)
[2024-07-16] MEDS: LIDOCAINE 5% PATCH 1 PATCH TRANSDERM (18:16)
[2024-07-16] MEDS: KETOROLAC 30 MG/ML VIAL (*BKC) IM (18:17)
[2024-07-16] MEDS: METOCLOPRAMIDE HCL 10 MG TABLET PO (18:17)
[2024-07-16] MEDS: diphenhydrAMINE HCl CAP 25 MG CAPSULE PO (18:17)
[2024-07-16] MEDS: CYCLOBENZAPRINE HCL 10 MG TABLET PO (18:17)
--- OUTSIDE RECORDS SUMMARY | 2024-07-16 18:24 | XMS_ITS | CONTINUITY OF CARE DOCUMENT ---
Author Name marilia capellan Address Unknown Organization [facility] Address [address] [place] [address] Phone [phone] Care Team Providers Care Teacher Aide Clerical Name Role Phone Dharmesh Canales MD Unavailable [phone] MALVIN HOLDER MD Unavailable MALVIN HOLDER MD Unavailable [phone] INSURANCE PROVIDERS Payer name Policy type / Coverage type [place] [employer] green party ID [employer] (2) Medicaid [id number]
[2024-07-16 18:31] VITALS: BP 145/94; PULSE 117; RESP 22; O2SAT 100
[2024-07-16 18:48] LABS: Add Urine Microscopic? YES; Appearance Urine Clear (Clear); Bacteria Urine None Seen /hpf; Bilirubin Urine Negative (Negative); Blood Urine Negative (Negative); Color Urine Dark Yellow (Yellow); Glucose Urine UA Negative (Negative); Ketones Urine Trace mg/dL (Negative); Leukocyte Esterase Ur Negative LEU/UL (Negative); Nitrate Urine Negative (Negative); Protein Urine Trace mg/dL (Negative); RBC Urine 0-2 /hpf (0-2); Specific Grav Ur 1.029 (1.001-1.035); Squamous Epithelial Cell Urine None Seen /hpf (Few); WBC Urine 0-5 /hpf (0-3); pH Urine 5.5 (5.0-9.0)
[2024-07-16 19:08] VITALS: PULSE 98
[2024-07-16 19:19] VITALS: BP 139/82; PULSE 100; RESP 20; TEMP 36.8; O2SAT 100
== END 2024-07-16 19:17 | disposition home or self-care (01) ==
PROVIDERS: Emergency Provider Physician Assistant
DX: G44.209 Tension-type headache, unspecified, not intractable (principal); S39.012A Strain of muscle, fascia and tendon of lower back, initial encounter; J45.909 Unspecified asthma, uncomplicated; F17.290 Nicotine dependence, other tobacco product, uncomplicated; X58.XXXA Exposure to other specified factors, initial encounter
CPT/HCPCS: 81001; 81025; 96372; 99283; A9270; J1885

== ENCOUNTER 2024-07-18 08:09 | Emergency (ER) | payer SELFPAY ==
[2024-07-18 08:15] VITALS: BP 144/93; PULSE 116; RESP 14; TEMP 38.2; O2SAT 100
--- NOTE | 2024-07-18 08:20 | ED_ITS ---
HPI - URI/Sore Throat General Chief Complaint: Upper Respiratory Infection Stated Complaint: sore throat Time Seen by Provider: 07/18/24 08:10 Source: patient Mode of arrival: ambulatory Limitations: no limitations History of Present Illness HPI Narrative: Patient is a 24-year-old female that presents with 1 day of sore throat, fever, chills. Patient has strep throat frequently. Denies any ear pain, cough, shelton estion, nausea, vomiting, diarrhea. Has taken Tylenol for fever. Highest fever at home was 103. Related Data Allergies Allergy/AdvReac Type Severity Reaction Status Date / Time coconut Allergy Unknown Swelling Verified 07/18/24 08:26 Wasp Allergy Unknown SWELLING Uncoded 07/18/24 08:26 AND NUMBNESS AT SITE Review of Systems Review of Systems: All systems reviewed & are unremarkable except as noted in HPI and below Constitutional: Constitutional: Denies body ache(s), Reports chills, Reports fever(s), Denies headache(s), Denies malaise and Denies weakness Eyes: Eyes: Denies loss of vision ENT: Denies otalgia, Denies headache(s), Denies nasal congestion, Denies sinus pain and Reports sore throat Cardiovascular: Cardiovascular: Denies chest pain, Denies irregular heart rhythm and Denies dyspnea Respiratory: Respiratory: Denies cough and Denies dyspnea Gastrointestinal: Gastrointestinal: Denies abdominal pain, Denies melena, Shakir es hematochezia, Denies diarrhea, Denies nausea and Denies vomiting Musculoskeletal: Musculoskeletal: Denies back pain, Denies myalgias and Denies arthralgias Integumentary/Breasts: Skin/Breast: Denies pruritus and Denies rash Neurologic: Denies headache(s), Denies loss of vision and Denies weakness Psychiatric: Psychiatric: Reports no additional psychiatric complaints PMFSH Past Medical History Medical History Asthma Family History Family History Grandparent No problems noted. Grandparent Diabetes mellitus Congestive heart failure Father Diabetes mellitus Social History Social History Smoking status: Current every day smoker Tobacco type: e-cigarettes/vaping Second hand tobacco smoke exposure: Yes Alcohol intake: never Substance use: never Lack of Transportation: No Lack of Food: Never True Current Housing: I Have Housing Concerned About Future Housing: No Difficulty Paying Gas/Electric Bills: No Difficulty Paying for Meds: No Currently Unemployed: No Education: High School Diploma/GED Difficulty w/ Childcare or Family Care: No Living arrangements: with family Spiritual care concerns: No Comments At time of signature, agree with nursing past medical, surgical, social and family history. There is no relevant family history pertinent to the presenting complaint. Exam Const: General: cooperative, healthy appearing, comfortable, no acute distress and well nourished Nutritional Appearance: well nourished Orientation/consciousness: patient oriented x3 Limitations: no limitations HENMT: Head: normal to inspection, normocephalic and atraumatic Ears: hearing grossly normal bilaterally, external ears normal, TM's normal bilaterally and EAC's normal Face/Nose/Sinus: Normal external nose present, Normal nares present, Normal nasal mucous membranes and turbinates present, Normal septum present, normal facial exam, sinuses nontender and face symmetric Face and sinus: normal facial exam, sinuses nontender and face symmetric Mouth: Yes Normal oral and palatal mucosa present, Yes lip normal and Yes moist mucous membranes Teeth and gingiva: dentition normal Throat: uvula midline, abnormal tonsil bilateral erythema, exudates and hypertrophy 3+ and posterior oropharynx abnormal erythema Eyes: General: appearance normal, both eyes and all related structures Alignment and Position: alignment normal and position normal Periorbital: periorbital findings normal Eyelids: eyelids normal Pupils: Equal, round and reactive pupils present Neck: Neck: normal visual inspection, full ROM, no lymphadenopathy and supple Chest: Chest palpation & inspection: normal inspection of the chest and normal palpation of entire chest wall Resp: Effort & Inspection: normal respiratory effort and able to speak in complete sentences Auscultation: clear to auscultation bilaterally, no c rackles, no rales, no rhonchi and no wheezes Cardio: Rate: regular rate Rhythm: regular rhythm Heart sounds: S1 normal heart sound present and S2 normal heart sound present GI: Inspection: normal to inspection Skin: General skin exam: normal color and no rashes or lesions noted Neuro: General: patient oriented x3 and moves all extremities Cranial nerves: Yes Equal, round and reactive pupils present Speech: normal speech Gait exam (Neuro): Normal gait present Extrem: General: normal to inspection, full ROM and no edema Psych: Appearance: grossly normal and well kempt Mental Status: mental status grossly normal Speech and movement: Normal speech and movement present Affect: normal affect Attitude: cooperative Thought process: Normal thought process present Course Course Emergency Course: Patient is aware of diagnosis, understands and agrees to treatment plan. Anticipatory guidance given. Patient agrees to follow-up as directed and is aware of reasons to seek care at the emergency department. Portions of this record may have been created with voice recognition software Level of Care: Express Care Visit Vital Signs Vital signs: Reviewed MDM - URI/Sore Throat MDM Narrative Medical decision making narrative: Patient positive for strep, will treat with antibiotics. Pt well hydrated appearing, in no respiratory distress, hemodynamically stable. Recommend supportive care. The patient is stable at time of discharge the clinical impression was discussed and the patient was given the opportunity to ask questions, which were addressed as completely as possible given the information available at present. Anticipatory guidance and return to care precautions were discussed and the importance of primary care follow-up was stressed and encouraged. The patient voiced understanding of the plan, indications to return, and the need for follow-up. Patient is appropriate for outpatient treatment and follow-up. Differential diagnosis considered: Mccord virus, strep pharyngitis, allergic rhinitis, upper respiratory tract infection, sinusitis, rhinosinusitis, nasopharyngitis. viral pharyngitis, otitis media, otitis externa, otitis effusion, foreign body, cerumen impaction, viral syndrome, and influenza. Medical Records Attestation: I reviewed the patient's medical records. Lab Data Attestation: I reviewed the patient's lab results. Lab results narrative: Positive for strep throat Discharge Plan Discharge Clinical Impression: Strep throat Patient Disposition: Home Condition: Stable Instructions: Strep Throat (ED) Additional Instructions: Your rapid strep swab was positive today at [facility]. After 24 hours on antibiotics throw tooth brush away and start using a new one. Wash your sheets and cup/water bottle that is used daily. Do not share drinks. Take Motrin alternating with Tylenol for pain and fever alternating every 3 hours. 8 AM: Tylenol 11 AM: Ibuprofen 2 PM: Tylenol 5 PM: Ibuprofen 8 PM: Tylenol 11 PM: Ibuprofen 2 AM: Tylenol 5 AM: Ibuprofen Increase fluids, avoid caffeine. Other symptomatic treatments include: -Antihistamine medication such as Benadryl at night and Zyrtec/Claritin/Luda during the day can help improve symptoms. -Use Flonase twice a day for 5 days then daily to help reduce the inflammation and dry up your sinuses. -You can also use Sudafed or Mucinex. Be sure to drink plenty of water with these medications at least 8 ounces with every dose and it is important to drink 8 to 10 glasses of water per day. Water is a natural decongestant -Eat and drink things that are easy to swallow, like tea or soup, or popsicles. -Oral rinses such as: Salt water gargles and/or may use topical anesthetic (eg. Chloraseptic spray) or lozenges to relieve dryness or throat pain). -Frequent hand washing or hand drop tester is one of the best ways to prevent spread of infection. -Using a vaporizer or humidifier at night will also help thin secretions and help with coughing up phlegm. -Follow up with primary care provider in 3-5 days if condition is not improving - For new or worsening symptoms go directly to the nearest ER Patient Language: Central African Prescriptions: New amoxicillin 500 mg capsule 500 mg PO BID 10 Days Qty: 20 0RF No Action cyclobenzaprine 10 mg tablet 10 mg PO TID PRN (Reason: muscle spasm) Qty: 14 0RF Follow-up/Referrals: Cliffrod Hogue MD [Physician] - 3 Days (Establish care) Stand Alone Forms: Work/School Release IP Time of Disposition: 08:39
[2024-07-18 08:51] LABS: EDSTREPNEGPOS1 Positive (Negative)
== END 2024-07-18 08:42 | disposition home or self-care (01) ==
PROVIDERS: Emergency Provider Nurse Practitioner Family
DX: J02.0 Streptococcal pharyngitis (principal); J45.909 Unspecified asthma, uncomplicated; F17.290 Nicotine dependence, other tobacco product, uncomplicated
CPT/HCPCS: 87880; 99213; G0463

== ENCOUNTER 2024-08-21 10:59 | Emergency (ER) | payer SELFPAY ==
[2024-08-21 11:04] VITALS: BP 124/73; PULSE 86; RESP 16; TEMP 36.4; O2SAT 99
--- NOTE | 2024-08-21 11:22 | ED_ITS ---
HPI - Eye Problem General Chief complaint: Eye Problems Stated complaint: Left Eye Irritation Source: patient Mode of arrival: ambulatory Limitations: no limitations History of Present Illness HPI Narrative: Patient is a 24 year old female who presents to the clinic with complaints of redness to her left eye x 1 day. She states that she woke up this morning with her eye being matted shut. 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 She endorses that her left eye does have mild blurriness. She has not been taking anything over the counter. Denies any foreign body sensation, eye pain, or fevers. Related Data Allergies Allergy/AdvReac Type Severity Reaction Status Date / Time coconut Allergy Unknown Swelling Verified 08/21/24 11:09 Wasp Allergy Unknown SWELLING Uncoded 08/21/24 11:09 AND NUMBNESS AT SITE Review of Systems Review of Systems: CONSTITUTIONAL: Denies body aches, fever, chills EYES:Endorses redness and mild blurriness to L eye; ?No FB sensation or photophobia.?No pain. ENT: Denies rhinorrhea, congestion, sore throat, or otalgia. CARDIOVASCULAR: Denies chest pain, palpitations RESPIRATORY: Denies cough or dyspnea. GASTROINTESTINAL: Denies abdominal pain, nausea, vomiting, or diarrhea. SKIN: Denies rash, itching, or wounds. MUSCULOSKELETAL: Denies back pain, joint pain, or myalgia. NEUROLOGIC: Denies headache, numbness, tingling, or weakness. All systems reviewed & are unremarkable except as noted in HPI and below PMFSH Past Medical History Medical History Asthma Family History Family History Grandparent No problems noted. Grandparent Diabetes mellitus Congestive heart failure Father Diabetes mellitus Social History Social History Smoking status: Current every day smoker Tobacco type: e-cigarettes/vaping Second hand tobacco smoke exposure: Yes Alcohol intake: never Substance use: never Lack of Transportation: No Lack of Food: Never True Current Housing: I Have Housing Concerned About Future Housing: No Difficulty Paying Gas/Electric Bills: No Difficulty Paying for Meds: No Currently Unemployed: No Education: High School Diploma/GED Difficulty w/ Childcare or Family Care: No Living arrangements: with family Spiritual care concerns: No Comments At time of signature, I have reviewed and agree with nursing past medical, surgical, social and family history unless otherwise noted. Please see nursing chart for further information. There is no relevant family history pertinent to the presenting complaint. Exam Narrative: GENERAL: Well-appearing HEAD: Normocephalic, atraumatic. EYES: ?L conjunctival injection noted. No eye lid swelling or redness. EOMI. ?Lid eversion with no FB. ENT: Mucous membranes pink and moist. ?No rhinorrhea. ?TMs normal bilaterally. ?Throat normal. Uvula midline. CHEST: ?Clear to auscultation. HEART: Regular rate and rhythm. ABDOMEN: Soft, nontender, nondistended SKIN: Warm, dry, no rash. ?Normal skin turgor. NEURO: No focal deficits. Alert and oriented x3 PSYCH: ?Normal affect. Course Course Level of Care: Express Care Visit Vital Signs Vital signs: Vital Signs Temperature 97.5 F L 08/21/24 11:04 Pulse Rate 86 08/21/24 11:04 Respiratory Rate 16 08/21/24 11:04 Blood Pressure 124/73 08/21/24 11:04 Pulse Oximetry 99 08/21/24 11:04 Oxygen Delivery Room Air 08/21/24 11:04 Temperature 97.5 F L 08/21/24 11:04 Pulse Rate 86 08/21/24 11:04 Respiratory Rate 16 08/21/24 11:04 Blood Pressure 124/73 08/21/24 11:04 Pulse Oximetry 99 08/21/24 11:04 Oxygen Delivery Room Air 08/21/24 11:04 Reviewed MDM - Eye Problem MDM Narrative Medical decision making narrative: Discussed physical exam findings. Ciprofloxacin eye drop prescription given. Advised supportive measures and signs/symptoms to go to the ER. Pt is appropriate for outpt treatment and follow up. Differential Diagnosis Differential diagnosis: Likely corneal abrasion, conjunctivitis and subconjunctival hemorrhage Critical Care Time Critical Care Time Critical Care Time: No Discharge Plan Discharge Clinical Impression: Bacterial conjunctivitis Patient Disposition: Home Condition: Stable Instructions: Conjunctivitis (ED) Additional Instructions: Avoid touching or rubbing your eye. Use over the counter lubricating eye drops as needed for irritation Use a warm or cool washcloth on your eye for comfort Use eyedrops as directed - you are contagious for 24 hours after starting the antibiotic Practice good handwashing and hygiene to prevent spread of infection Do not wear the contact lenses. Use a new pair after the infection is resolved. Use new makeup, lashes etc. 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 Go to the emergency room if you have severe pain or pressure behind your eye, difficulty seeing, or other severe symptoms Patient Language: Amharic Prescriptions: New ciprofloxacin HCl 0.3 % drops See Rx Instructions .ROUTE .COMPLEX Qty: 5 0RF Rx Instructions: put 2 drps in left eye every 2hr up to 8 times/day x2days; then 4 times/day x5days Follow-up/Referrals: PHYSICIAN,MOLD FORMS BUILDER [Primary Care Provider] - Stand Alone Forms: Work/School Release IP Time of Disposition: 11:27
== END 2024-08-21 11:33 | disposition home or self-care (01) ==
DX: H10.9 Unspecified conjunctivitis (principal); F17.290 Nicotine dependence, other tobacco product, uncomplicated; J45.909 Unspecified asthma, uncomplicated
CPT/HCPCS: 99213; G0463

== ENCOUNTER 2024-09-10 17:35 | Emergency (ER) | payer SELFPAY ==
[2024-09-10 17:42] VITALS: BP 132/73; PULSE 85; RESP 20; TEMP 37; O2SAT 100
--- NOTE | 2024-09-10 18:27 | ED_ITS ---
HPI - Skin/Abscess/Foreign Bdy General Chief complaint: Skin/Abscess/Foreign Body Stated complaint: Rash Time Seen by Provider: 09/10/24 18:20 Source: patient and RN notes reviewed Mode of arrival: ambulatory Limitations: no limitations History of Present Illness HPI narrative: Patient presents today requesting evaluation for possible [id number]. 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 No lesions to the mouth. States lesions are not painful. Denies fever or any other systemic symptoms. Related Data Allergies Allergy/AdvReac Type Severity Reaction Status Date / Time coconut Allergy Unknown Swelling Verified 09/10/24 17:37 Wasp Allergy Unknown SWELLING Uncoded 09/10/24 17:37 AND NUMBNESS AT SITE PMFSH Past Medical History Medical History Asthma Family History Family History Grandparent No problems noted. Grandparent Diabetes mellitus Congestive heart failure Father Diabetes mellitus Social History Social History Smoking status: Current every day smoker Tobacco type: e-cigarettes/vaping Second hand tobacco smoke exposure: Yes Alcohol intake: never Substance use: never Lack of Transportation: No Lack of Food: Never True Current Housing: I Have Housing Concerned About Future Housing: No Difficulty Paying Gas/Electric Bills: No Difficulty Paying for Meds: No Currently Unemployed: No Education: High School Diploma/GED Difficulty w/ Childcare or Family Care: No Living arrangements: with family Spiritual care concerns: No Comments At time of signature, I have reviewed and agree with nursing past medical, surgical, social and family history unless otherwise noted. Please see nursing chart for further information. There is no relevant family history pertinent to the presenting complaint Exam Narrative: GENERAL: Well-appearing, well-nourished, and in no acute distress. HEAD: Normocephalic, atraumatic. EYES: EOMI. No redness or drainage. Conjunctivae normal. ENT: Mucous membranes pink and moist. Throat normal. Uvula midline. NECK: Normal AROM. CHEST: No respiratory distress. EXTREMITIES: Normal range of motion. No edema. SKIN: Warm, dry. Capillary refill normal. Normal skin turgor. Unable to visualize the lesion is patient points to on her left hand dorsum. She has a few tiny spots to the chest that just appear to be irritated follicles. NEURO: No focal deficits. Alert and oriented x3. Gait steady. PSYCH: Normal affect. No signs of depression or anxiety. Course Course Level of Care: Express Care Visit Vital Signs Vital signs: Vital Signs Temperature 98.6 F 09/10/24 17:42 Pulse Rate 85 09/10/24 17:42 Respiratory Rate 20 09/10/24 17:42 Blood Pressure 132/73 09/10/24 17:42 Pulse Oximetry 100 09/10/24 17:42 Oxygen Delivery Room Air 09/10/24 17:42 Temperature 98.6 F 09/10/24 17:42 Pulse Rate 85 09/10/24 17:42 Respiratory Rate 20 09/10/24 17:42 Blood Pressure 132/73 09/10/24 17:42 Pulse Oximetry 100 09/10/24 17:42 Oxygen Delivery Room Air 09/10/24 17:42 Reviewed MDM - Skin/Abscess/Foreign Bdy MDM Narrative Medical decision making narrative: 24-year-old patient presents for evaluation lesions that just started today, suspicious for [id number] as 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 Many of the areas patient is concerned about, lesions cannot be visualized or palpated on the skin. This is not convincing for entd-[id number]-[id number] diagnosis. Patient does not have any systemic symptoms as well. Discussed with patient that watchful waiting will tell her more in the following days. Patient agrees with plan. Vital signs stable. Anticipatory guidance given. Differential Diagnosis Differential diagnosis: Likely viral exanthem, dermatophytosis, urticaria, insect bites, impetigo, contact dermatitis and other ([id number]) Critical Care Time Critical Care Time Critical Care Time: No Discharge Plan Discharge Clinical Impression: Exposure to viral disease Patient Disposition: Home Condition: Stable Instructions: Hand, Foot, and Mouth Disease (ED) Additional Instructions: Your exam is not convincing for lmts-ajyx-cimgl just yet. Continue to monitor your symptoms. You have been given information regarding [id number]-[id number]-[id number] and what to expect if you develop more defined rash. Follow-up with your PCP with any concerns. Your blood pressure was elevated above 120/80 today at Urgent Care. This puts you above the threshold for follow up. Please schedule a followup visit with your personal physician as soon as possible, for further evaluation and treatment. Even blood pressure exceeding 120/80 may indicate pre-hypertension. Patient Language: Bermudian Follow-up/Referrals: PHYSICIAN,DISCHARGE COORDINATOR [Primary Care Provider] - Time of Disposition: 18:33
== END 2024-09-10 18:35 | disposition home or self-care (01) ==
PROVIDERS: Emergency Provider Nurse Practitioner
DX: Z20.818 Contact with and (suspected) exposure to other bacterial communicable diseases (principal); F17.290 Nicotine dependence, other tobacco product, uncomplicated; J45.909 Unspecified asthma, uncomplicated
CPT/HCPCS: 99211; G0463

== ENCOUNTER 2024-12-06 14:22 | Emergency (ER) | payer OTHER, SELFPAY ==
[2024-12-06 14:29] VITALS: BP 142/87; PULSE 94; RESP 20; TEMP 37.1; O2SAT 100
--- NOTE | 2024-12-06 14:53 | ED_ITS ---
HPI - Skin/Abscess/Foreign Bdy General Chief complaint: Skin/Abscess/Foreign Body Stated complaint: Rash patient presents to the [facility] with complaints of itchy rash to both the arms that began at 2 days ago. Patient reports her headaches are often chills have pain she does remember taking a complaint of her has and the rash started shortly after that. Patient had been using some lotions that do help with the itching slightly. Patient was concerned since she does have a small daughter in-law to make sure she was not contagious or red this rash came from. Patient denies any cold-like symptoms, fever, chills, body aches, or drainage from the rash area. Related Data Allergies Allergy/AdvReac Type Severity Reaction Status Date / Time coconut Allergy Unknown Swelling Verified 12/06/24 14:31 Wasp Allergy Unknown SWELLING Uncoded 09/10/24 17:37 AND NUMBNESS AT SITE Review of Systems Constitutional: Constitutional: Reports as per HPI, Denies chills, Denies fatigue, Denies fever(s) and Denies weakness Eyes: Eyes: Reports no additional eye complaints ENT: Reports system reviewed and no additional complaints, except as documented Cardiovascular: Cardiovascular: Reports no additional cardiovascular complaints Respiratory: Respiratory: Reports no additional respiratory complaints Gastrointestinal: Gastrointestinal: Reports no additional gastrointestinal complaints Genitourinary: Genitourinary: Reports no additional female genitourinary complaints Musculoskeletal: Musculoskeletal: Reports no additional musculoskeletal complaints Integumentary/Breasts: Skin/Breast: Reports as per HPI, Reports pruritus and Reports rash Neurologic: Reports system reviewed and no additional complaints, except as documented Psychiatric: Psychiatric: Reports no additional psychiatric complaints Endocrine: Endocrine: Reports no additional endocrine complaints Hematologic/Lymphatic: Hematologic/Lymphatic: Reports no additional hematologic/lymphatic complaints Allergic/Immunologic: Allergic/Immunologic: Reports no additional allergic/immunologic complaints [facility], [facility] Past Medical History Medical History Asthma Family History Family History Grandparent No problems noted. Grandparent Diabetes mellitus Congestive heart failure Father Diabetes mellitus Social History Social History Smoking status: Current every day smoker Tobacco type: e-cigarettes/vaping Second hand tobacco smoke exposure: Yes Alcohol intake: never Substance use: never Lack of Transportation: No Lack of Food: Never True Current Housing: I Have Housing Concerned About Future Housing: No Difficulty Paying Gas/Electric Bills: No Difficulty Paying for Meds: No Currently Unemployed: No Education: High School Diploma/GED Difficulty w/ Childcare or Family Care: No Living arrangements: with family Spiritual care concerns: No Exam Const: General: healthy appearing and no acute distress Nutritional Appearance: well nourished Orientation/consciousness: patient oriented x3 Limitations: no limitations Resp: Effort & Inspection: normal respiratory effort Auscultation: clear to auscultation bilaterally Cardio: Rate: regular rate Rhythm: regular rhythm Skin: General skin exam: normal color Rashes: rash noted Wounds: no wounds Other: Back diffuse minimal papular rash noted to bilateral upper extremities Neuro: General: patient oriented x3 and moves all extremities Cranial nerves: Yes Nystagmus not present Speech: normal speech Gait exam (Neuro): Normal gait present Extrem: General: no clubbing, cyanosis or edema and no pedal edema Psych: Mental Status: mental status grossly normal Affect: normal affect Attitude: cooperative Course Course Level of Care: Express Care Visit Vital Signs Vital signs: Vital Signs Temperature 98.8 F 12/06/24 14:29 Pulse Rate 94 12/06/24 14:29 Respiratory Rate 20 12/06/24 14:29 Blood Pressure 142/87 H 12/06/24 14:29 Pulse Oximetry 100 12/06/24 14:29 Oxygen Delivery Room Air 12/06/24 14:29 Temperature 98.8 F 12/06/24 14:29 Pulse Rate 94 12/06/24 14:29 Respiratory Rate 20 12/06/24 14:29 Blood Pressure 142/87 H 12/06/24 14:29 Pulse Oximetry 100 12/06/24 14:29 Oxygen Delivery Room Air 12/06/24 14:29 MDM - Skin/Abscess/Foreign Bdy MDM Narrative Medical decision making narrative: Given presentation of rash and use of different blanket likely contact dermatitis. Will place patient on topical on steroids. The patient was evaluated by myself in the express care. History is obtained from patient who is an independent historian and physical exam was performed. Available medical records were reviewed at this time. Exam findings show no acute concerns or changes; patient is non-toxic appearing and is in no distress. Patient is appropriate for outpatient treatment and follow-up. I have evaluated and discussed social determinants of health with the patient that could potentially impact subsequent diagnosis and treatment plans. Differential diagnosis and treatment plan were discussed with the patient. Patient agrees with discussion and after shared medical decision making agrees with plan of care. All questions were answered to the patient's satisfaction. Differential Diagnosis Differential diagnosis: Likely viral exanthem, urticaria, eczema, impetigo and contact dermatitis Medical Records Attestation: I reviewed the patient's medical records. Discharge Plan Discharge Clinical Impression: Allergic contact dermatitis, unspecified cause Patient Disposition: Home Condition: Stable Instructions: Antibiotic Form, Contact Dermatitis (ED), Cold Compress or Soak (ED) Additional Instructions: The most important part of your care is follow up with Primary care provider. Take Benadryl 25-50 mg every 6 hours for itching Take Pepcid 20mg daily for 7 days Take the steroids starting today Avoid hot showers, Take cool showers. Apply a good moisturizing lotion to the skin. Return to the ER for new or worsening symptoms such as shortness of breath. Patient Language: Jordanian Prescriptions: New triamcinolone acetonide 0.1 % cream 1 applic topical TID Qty: 80 0RF methylprednisolone [Medrol (Dionisio)] 4 mg tablets,dose pack See Rx Instructions .ROUTE .COMPLEX Qty: 21 0RF Rx Instructions: for 6 days Follow-up/Referrals: PHYSICIAN,QUENCHING CAR OPERATOR [Primary Care Provider, Internal Medicine] Time of Disposition: 14:55
== END 2024-12-06 15:01 | disposition home or self-care (01) ==
PROVIDERS: Emergency Provider Nurse Practitioner Family
DX: L23.9 Allergic contact dermatitis, unspecified cause (principal); J45.909 Unspecified asthma, uncomplicated; F17.290 Nicotine dependence, other tobacco product, uncomplicated
CPT/HCPCS: 99213; G0463